=== PATIENT | male | born 1960 | race Caucasian/White ===

== ENCOUNTER 2018-03-09 17:28 | Inpatient (IN) | payer MEDICARE, OTHER ==
[2018-03-09] MEDS ORDERED: Albuterol 0.083% 2.5 MG/3 ML Neb Soln NEB ONE (18:13)
[2018-03-09] MEDS ORDERED: Sodium Chloride 0.9% 10 ML Syringe FLUSH PRN (18:13)
[2018-03-09] MEDS ORDERED: Sodium Chloride 0.9% 1,000 ML IV ONE ×2 (18:13→18:16)
[2018-03-09] MEDS ORDERED: Ketorolac 30 MG/ML SDV IVPUSH ONE (18:13)
[2018-03-09] MEDS ORDERED: HYDROmorphone 0.5 MG/0.5 ML SYRINGE IVPUSH ONE ×2 (18:14→21:38)
--- NOTE | 2018-03-09 18:41 | EDM.PDOC ---
ED HPI GENERAL MEDICAL PROBLEM - General Chief Complaint: Respiratory Problem Stated Complaint: FEVER Time Seen by Provider: 03/09/18 17:55 Source of Information: Reports: Patient History Limitations: Reports: No Limitations - History of Present Illness INITIAL COMMENTS - FREE TEXT/NARRATIVE: Patient is a 57-year-old male with a history of epilepsy, coronary disease with stent placement, GERD, hypercholesteremia, chronic pain syndrome, diabetes, and chest pain presents ED complaining of fever and back pain. States he's had a productive cough for the past month. Cough has progressively gotten worse. There is no shortness of breath. He's had sinus congestion, sore throat, dysuria , with generalized body aches. Patient recently just traveled to [place] for a when fever came about. He has taken tylenol at 1600hr with no significant improvements. States the past 10 years after returning from [place] he has intermittent episodes of fevers with no clear etiology. He's been evaluated by multiple infections disease provider's during this time.He was evaluated by his PCP 1 wks ago and placed on azithromycin. This was completed Tuesday. Treatments [employer]: Reports: Acetaminophen, NSAIDS Back Pain Score (Numeric/FACES): 8 - Related Data Allergies Allergy/AdvReac Type Severity Reaction Status Date / Time No Known Allergies Allergy Verified 03/09/18 23:54 Home Meds: Home Meds Aspirin [Halfprin] 81 mg PO DAILY 03/09/18 [History] ClonazePAM [KlonoPIN] 1 mg PO DAILY 03/09/18 [History] Fenofibrate,Micronized [Fenofibrate] 134 mg PO DAILY 03/09/18 [History] Insuln Asp Prot/Insulin Aspart [NovoLOG Mix 70-30] 1 - 20 units SUBCUT TID 03/09 [History] Krill/Om-3/DHA/EPA/Phospho/Ast [[place]-3 Krill Oil 1,000 mg] 1 tab PO DAILY 03/09 [History] Lisinopril [Prinivil] 10 mg PO DAILY 03/09/18 [History] Pantoprazole [ProTONIX] 40 mg PO DAILY 03/09/18 [History] Phenytoin Sodium Extended [Dilantin] 100 mg PO DAILY 03/09/18 [History] atorvaSTATin [Lipitor] 40 mg PO DAILY 08/30/18 [History] Past Medical History Cardiovascular History: Reports: CAD, High Cholesterol, Hypertension Gastrointestinal History: Reports: GERD Neurological History: Reports: Seizure Endocrine/Metabolic History: Reports: Diabetes, Type I Social & Family History - Tobacco Use Smoking Status *Q: Current Every Day Smoker Years of Tobacco use: 40 Packs/Tins Daily: 0.4 - Recreational Drug Use Recreational Drug Use: No ED ROS GENERAL - Review of Systems Review Of Systems: See Below ED EXAM, GENERAL - Physical Exam Exam: See Below Exam Limited By: No Limitations General Appearance: Alert, WD/WN, Moderate Distress Ears: Hearing Grossly Normal Nose: Normal Inspection Throat/Mouth: Normal Voice, No Airway Compromise, Other (dry oral mucosa) Head: Atraumatic, Normocephalic Neck: Normal Inspection, Supple, Non-Tender, Full Range of Motion Respiratory/Chest: No Respiratory Distress, Lungs Clear, Normal Breath Sounds, No Accessory Muscle Use, Chest Non-Tender Cardiovascular: Normal Peripheral Pulses, No Murmur, Tachycardia Peripheral Pulses: 2+: Radial (L) GI/Abdominal: Normal Bowel Sounds, Soft, No Organomegaly, No Distention, Tender (chronic tenderness noted the umbilicus following hernia repair. No Britton sign , no tenderness along the McBurney's point, no suprapubic tenderness. ) (Male) Exam: Deferred (No complaints per patient.) Back Exam: Normal Inspection, Full Range of Motion, CVA Tenderness (L). No: CVA Tenderness (R), Decreased Range of Motion, Paraspinal Tenderness, Vertebral Tenderness Extremities: Normal Inspection Neurological: Alert, Oriented, CN II-XII Intact, Normal Cognition, No Motor/ Sensory Deficits Psychiatric: Normal Affect, Normal Mood Skin Exam: Warm, Dry, Intact, Normal Color, No Rash Course - Vital Signs Last Recorded V/S: Last Vital Signs Temp 99.3 F 03/10/18 15:32 Pulse 78 03/10/18 15:32 Resp 14 03/10/18 15:32 BP 109/54 L 03/10/18 15:32 Pulse Ox 95 03/10/18 15:32 - Orders/Labs/Meds Orders: Medication Orders Acetaminophen (Tylenol) 650 mg PO Q4H PRN PRN Reason: Pain (Mild 1-3)/fever Acetaminophen/Butalbital/Caffeine (Fioricet 325-50-40 Mg) 2 tab PO Q6H PRN PRN Reason: Headache Last Admin: 03/10/18 00:11 Dose: 2 tab Hydrocodone Bitart/Acetaminophen ([place] 325-5 Mg) 1 tab PO Q4H PRN PRN Reason: Pain (moderate 4-6) Last Admin: 03/10/18 17:32 Dose: 1 tab Admin: 03/10/18 11:15 Dose: 1 tab Admin: 03/10/18 04:36 Dose: 1 tab Albuterol/Ipratropium (Duoneb 3.0-0.5 Mg/3 Ml) 3 ml NEB Q4H PRN PRN Reason: Shortness Of Breath/wheezing Aspirin (Halfprin) 81 mg PO DAILY [facility] Last Admin: 03/10/18 08:23 Dose: 81 mg Bisacodyl (Dulcolax) 5 mg PO DAILY PRN PRN Reason: Constipation Clonazepam (Klonopin) 1 mg PO DAILY [facility] Last Admin: 03/10/18 08:23 Dose: 1 mg Admin: 03/10/18 00:23 Dose: Not Given Docusate Sodium (Colace) 100 mg PO BID PRN PRN Reason: Constipation Fenofibrate (Tricor) 145 mg PO DAILY [facility] Last Admin: 03/10/18 08:23 Dose: 145 mg Fish Oil (Fish Oil) 1 gm PO DAILY [facility] Last Admin: 03/10/18 08:23 Dose: 1 gm Flunisolide (Nasalide Nasal [place]) 15 ml NASBOTH BID [facility] Last Admin: 03/10/18 21:49 Dose: 2 spray Guaifenesin/Phenylephrine HCl (Robitussin Dm) 10 ml PO TID@0700,1400,2100 PRN PRN Reason: Cough Hydralazine HCl (Apresoline) 20 mg IVPUSH Q4H PRN PRN Reason: Hypertension Hydromorphone HCl (Dilaudid) 0.5 mg IVPUSH Q2H PRN PRN Reason: Pain (severe 7-10) Last Admin: 03/10/18 18:23 Dose: 0.5 mg Admin: 03/10/18 11:50 Dose: 0.5 mg Admin: 03/10/18 08:19 Dose: 0.5 mg Admin: 03/10/18 04:37 Dose: 0.5 mg Admin: 03/10/18 00:20 Dose: 0.5 mg Promethazine HCl 12.5 mg/ (Sodium Chloride) 50.5 mls @ 100 mls/hr IV Q6H PRN PRN Reason: Nausea/Vomiting Sodium Chloride (Normal Saline) 1,000 mls @ 125 mls/hr IV ASDIRECTED [facility] Last Admin: 03/10/18 21:46 Dose: 125 mls/hr Infusion: 03/10/18 21:46 Dose: 125 mls/hr Admin: 03/10/18 15:07 Dose: 125 mls/hr Infusion: 03/10/18 14:50 Dose: 125 mls/hr Admin: 03/10/18 06:50 Dose: 125 mls/hr Infusion: 03/10/18 06:48 Dose: 125 mls/hr Admin: 03/09/18 22:48 Dose: 125 mls/hr Piperacillin Sod/Tazobactam (Sod 4.5 gm/ Sodium Chloride) 100 mls @ 25 mls/hr IV Q8H [facility] Last Admin: 03/10/18 21:55 Dose: 25 mls/hr Infusion: 03/10/18 19:09 Dose: 25 mls/hr Admin: 03/10/18 15:09 Dose: 25 mls/hr Infusion: 03/10/18 10:50 Dose: 25 mls/hr Admin: 03/10/18 06:50 Dose: 25 mls/hr Levofloxacin/Dextrose 500 mg/ (Premix) 100 mls @ 100 mls/hr IV Q24H [facility] Last Admin: 03/10/18 21:42 Dose: 100 mls/hr Insulin Human Lispro (Humalog) 0 unit SUBCUT QIDACANDBED [facility]; Protocol Last Admin: 03/10/18 21:51 Dose: 8 units Admin: 03/10/18 17:21 Dose: 4 units Admin: 03/10/18 12:15 Dose: 12 units Lisinopril (Prinivil) 10 mg PO DAILY [facility] Last Admin: 03/10/18 08:26 Dose: 10 mg Loratadine (Claritin) 10 mg PO BEDTIME [facility] Last Admin: 03/10/18 21:48 Dose: 10 mg Lorazepam (Ativan) 2 mg IVPUSH Q4H PRN PRN Reason: Seizures Lorazepam (Ativan) 1 mg IV Q6H PRN PRN Reason: Anxiety Magnesium Sulfate (Pharmacy To Dose - Magnesium Replacement) 0 dose .XX ASDIRECTED PRN PRN Reason: RX TO WATCH MAG LEVEL Metoprolol Tartrate (Lopressor) 5 mg IVPUSH Q4H PRN PRN Reason: Tachycardia Nicotine (Habitrol) 21 mg TRDERM DAILY [facility] Last Admin: 03/10/18 18:24 Dose: Not Given Ondansetron HCl (Zofran) 4 mg IV Q6H PRN PRN Reason: Nausea/Vomiting Last Admin: 03/10/18 06:48 Dose: 4 mg Oxymetazoline HCl (Afrin Original 0.05% Nasal [place]) 1 - 2 ml BIGG Q12HR PRN PRN Reason: Congestion Last Admin: 03/10/18 15:40 Dose: 1 spray Admin: 03/09/18 22:57 Dose: 1 spray Pantoprazole Sodium (Protonix) 40 mg PO ACBREAKFAST [facility] Last Admin: 03/10/18 08:26 Dose: 40 mg Phenytoin Sodium (Phenytoin) 100 mg PO DAILY [facility] Last Admin: 03/10/18 08:23 Dose: 100 mg Polyethylene Glycol (Miralax) 17 gm PO DAILY PRN PRN Reason: Constipation Potassium Chloride (Pharmacy To Dose - Potassium Replacement) 0 dose .XX ASDIRECTED PRN PRN Reason: RX TO WATCH K LEVELS Rosuvastatin Calcium (Crestor) 10 mg PO DAILY [facility] Last Admin: 03/10/18 08:23 Dose: 10 mg Saccharomyces Boulardii (Florastor) 250 mg PO DAILY [facility] Last Admin: 03/10/18 08:26 Dose: 250 mg Senna/Docusate Sodium (Senna Plus) 1 tab PO BID PRN PRN Reason: Constipation Sodium Chloride (Saline Flush) 10 ml FLUSH ASDIRECTED PRN PRN Reason: Keep Vein Open Last Admin: 03/09/18 18:55 Dose: 10 ml Temazepam (Restoril) 15 mg PO BEDTIME PRN PRN Reason: Sleep Last Admin: 03/10/18 00:12 Dose: 15 mg Labs: Laboratory Tests 03/09/18 03/09/18 03/09/18 Range/Units 18:30 18:30 18:30 WBC 13.93 H (4.23-9.07) K/mm3 RBC 4.33 L (4.63-6.08) M/mm3 Hgb 13.8 (13.7-17.5) gm/L Hct 39.4 L (40.1-51.0) % MCV 91.0 (79.0-92.2) fl MCH 31.9 (25.7-32.2) pg MCHC 35.0 (32.2-35.5) g/dl RDW Std Deviation 45.1 H (35.1-43.9) fL Plt Count 288 (163-337) K/mm3 MPV 8.8 L (9.4-12.3) fl Neutrophils % (Manual) 84 H (40-60) % Band Neutrophils % 0 (0-10) % Lymphocytes % (Manual) 12 L (20-40) % Atypical Lymphs % 0 % Monocytes % (Manual) 1 L (2-10) % Eosinophils % (Manual) 2 (0.8-7.0) % Basophils % (Manual) 1 (0.2-1.2) Platelet Estimate Adequate Plt Morphology Comment Normal RBC Morph Comment Normal ESR (0-15) mm/hr D-Dimer, Quantitative (0.19-0.50) mg/L Sodium 141 (136-145) mEq/L Potassium 3.6 (3.5-5.1) mEq/L Chloride 106 (98-107) mEq/L Carbon Dioxide 23 (21-32) mEq/L Anion Gap 15.6 H (5-15) BUN 24 H (7-18) mg/dL Creatinine 1.4 H (0.7-1.3) mg/dL Est Cr Clr Drug Dosing 55.64 mL/min Estimated GFR (MDRD) 52 (>60) mL/min BUN/Creatinine Ratio 17.1 (14-18) Glucose 121 H (74-106) mg/dL Hemoglobin A1c (4.50-6.20) % Lactic Acid (0.4-2.0) mmol/L Calcium 9.0 (8.5-10.1) mg/dL Total Bilirubin 0.4 (0.2-1.0) mg/dL AST 19 (15-37) U/L ALT 23 (16-63) U/L Alkaline Phosphatase 97 (46-116) U/L C-Reactive Protein 6.4 H* (<1.0) mg/dL Total Protein 7.3 (6.4-8.2) g/dl Albumin 3.9 (3.4-5.0) g/dl Globulin 3.4 gm/dL Albumin/Globulin Ratio 1.2 (1-2) Lipase (73-393) U/L Urine Color (Yellow) Urine Appearance (Clear) Urine pH (5.0-8.0) Ur Specific [place] (1.005-1.030) Urine Protein (Negative) Urine Glucose (UA) (Negative) Urine Ketones (Negative) Urine Occult Blood (Negative) Urine Nitrite (Negative) Urine Bilirubin (Negative) Urine Urobilinogen (0.2-1.0) Ur Leukocyte Esterase (Negative) Urine RBC (0-5) /hpf Urine WBC (0-5) /hpf Ur Epithelial Cells (0-5) /hpf Urine Bacteria (FEW) /hpf Urine Mucus (FEW) /hpf Mycoplasma pneumon IgM Negative (NEGATIVE) 03/09/18 03/09/18 03/09/18 Range/Units 18:30 18:30 18:30 WBC (4.23-9.07) K/mm3 RBC (4.63-6.08) M/mm3 Hgb (13.7-17.5) gm/L Hct (40.1-51.0) % MCV (79.0-92.2) fl MCH (25.7-32.2) pg MCHC (32.2-35.5) g/dl RDW Std Deviation (35.1-43.9) fL Plt Count (163-337) K/mm3 MPV (9.4-12.3) fl Neutrophils % (Manual) (40-60) % Band Neutrophils % (0-10) % Lymphocytes % (Manual) (20-40) % Atypical Lymphs % % Monocytes % (Manual) (2-10) % Eosinophils % (Manual) (0.8-7.0) % Basophils % (Manual) (0.2-1.2) Platelet Estimate Plt Morphology Comment RBC Morph Comment ESR 14 (0-15) mm/hr D-Dimer, Quantitative (0.19-0.50) mg/L Sodium (136-145) mEq/L Potassium (3.5-5.1) mEq/L Chloride (98-107) mEq/L Carbon Dioxide (21-32) mEq/L Anion Gap (5-15) BUN (7-18) mg/dL Creatinine (0.7-1.3) mg/dL Est Cr Clr Drug Dosing mL/min Estimated GFR (MDRD) (>60) mL/min BUN/Creatinine Ratio (14-18) Glucose (74-106) mg/dL Hemoglobin A1c 6.80 H (4.50-6.20) % Lactic Acid (0.4-2.0) mmol/L Calcium (8.5-10.1) mg/dL Total Bilirubin (0.2-1.0) mg/dL AST (15-37) U/L ALT (16-63) U/L Alkaline Phosphatase (46-116) U/L C-Reactive Protein (<1.0) mg/dL Total Protein (6.4-8.2) g/dl Albumin (3.4-5.0) g/dl Globulin gm/dL Albumin/Globulin Ratio (1-2) Lipase 56 L (73-393) U/L Urine Color (Yellow) Urine Appearance (Clear) Urine pH (5.0-8.0) Ur Specific [place] (1.005-1.030) Urine Protein (Negative) Urine Glucose (UA) (Negative) Urine Ketones (Negative) Urine Occult Blood (Negative) Urine Nitrite (Negative) Urine Bilirubin (Negative) Urine Urobilinogen (0.2-1.0) Ur Leukocyte Esterase (Negative) Urine RBC (0-5) /hpf Urine WBC (0-5) /hpf Ur Epithelial Cells (0-5) /hpf Urine Bacteria (FEW) /hpf Urine Mucus (FEW) /hpf Mycoplasma pneumon IgM (NEGATIVE) 03/09/18 03/09/18 03/09/18 Range/Units 18:40 20:02 20:40 WBC (4.23-9.07) K/mm3 RBC (4.63-6.08) M/mm3 Hgb (13.7-17.5) gm/L Hct (40.1-51.0) % MCV (79.0-92.2) fl MCH (25.7-32.2) pg MCHC (32.2-35.5) g/dl RDW Std Deviation (35.1-43.9) fL Plt Count (163-337) K/mm3 MPV (9.4-12.3) fl Neutrophils % (Manual) (40-60) % Band Neutrophils % (0-10) % Lymphocytes % (Manual) (20-40) % Atypical Lymphs % % Monocytes % (Manual) (2-10) % Eosinophils % (Manual) (0.8-7.0) % Basophils % (Manual) (0.2-1.2) Platelet Estimate Plt Morphology Comment RBC Morph Comment ESR (0-15) mm/hr D-Dimer, Quantitative 0.28 (0.19-0.50) mg/L Sodium (136-145) mEq/L Potassium (3.5-5.1) mEq/L Chloride (98-107) mEq/L Carbon Dioxide (21-32) mEq/L Anion Gap (5-15) BUN (7-18) mg/dL Creatinine (0.7-1.3) mg/dL Est Cr Clr Drug Dosing mL/min Estimated GFR (MDRD) (>60) mL/min BUN/Creatinine Ratio (14-18) Glucose (74-106) mg/dL Hemoglobin A1c (4.50-6.20) % Lactic Acid 1.7 (0.4-2.0) mmol/L Calcium (8.5-10.1) mg/dL Total Bilirubin (0.2-1.0) mg/dL AST (15-37) U/L ALT (16-63) U/L Alkaline Phosphatase (46-116) U/L C-Reactive Protein (<1.0) mg/dL Total Protein (6.4-8.2) g/dl Albumin (3.4-5.0) g/dl Globulin gm/dL Albumin/Globulin Ratio (1-2) Lipase (73-393) U/L Urine Color Yellow (Yellow) Urine Appearance Slt cloudy H (Clear) Urine pH 6.0 (5.0-8.0) Ur Specific [place] 1.025 (1.005-1.030) Urine Protein 1+ H (Negative) Urine Glucose (UA) Negative (Negative) Urine Ketones Negative (Negative) Urine Occult Blood Trace-intact H (Negative) Urine Nitrite Negative (Negative) Urine Bilirubin Negative (Negative) Urine Urobilinogen 0.2 (0.2-1.0) Ur Leukocyte Esterase 2+ H (Negative) Urine RBC 5-10 H (0-5) /hpf Urine WBC 50-75 H (0-5) /hpf Ur Epithelial Cells 5-10 H (0-5) /hpf Urine Bacteria Moderate H (FEW) /hpf Urine Mucus Not seen (FEW) /hpf Mycoplasma pneumon IgM (NEGATIVE) Meds: Medications Generic Name Dose Route Start Last Admin Trade Name Freq PRN Reason Stop Dose Admin Acetaminophen 650 mg 03/09/18 21:40 Tylenol PO Q4H PRN Pain (Mild 1-3)/fever Acetaminophen/Butalbital/Caffeine 2 tab 03/09/18 22:20 03/10/18 00:11 Fioricet 325-50-40 Mg PO 2 tab Q6H PRN Administration Headache Hydrocodone Bitart/Acetaminophen 1 tab 03/09/18 21:40 03/10/18 17:32 [place] 325-5 Mg PO 1 tab Q4H PRN Administration Pain (moderate 4-6) Albuterol/Ipratropium 3 ml 03/09/18 21:40 Duoneb 3.0-0.5 Mg/3 Ml NEB Q4H PRN Shortness Of Breath/wheezing Aspirin 81 mg 03/10/18 09:00 03/10/18 08:23 Halfprin PO 81 mg DAILY [facility] Administration Bisacodyl 5 mg 03/09/18 21:40 Dulcolax PO DAILY PRN Constipation Clonazepam 1 mg 03/09/18 22:00 03/10/18 08:23 Klonopin PO 1 mg DAILY [facility] Administration Docusate Sodium 100 mg 03/09/18 21:40 Colace PO BID PRN Constipation Fenofibrate 145 mg 03/10/18 09:00 03/10/18 08:23 Tricor PO 145 mg DAILY [facility] Administration Fish Oil 1 gm 03/10/18 09:00 03/10/18 08:23 Fish Oil PO 1 gm DAILY [facility] Administration Flunisolide 15 ml 03/10/18 21:00 03/10/18 21:49 Nasalide Nasal [place] NASBOTH 2 spray BID [facility] Administration Guaifenesin/Phenylephrine HCl 10 ml 03/10/18 07:00 Robitussin Dm PO TID@0700,1400,2100 PRN Cough Hydralazine HCl 20 mg 03/09/18 21:39 Apresoline IVPUSH Q4H PRN Hypertension Hydromorphone HCl 0.5 mg 03/10/18 00:15 03/10/18 18:23 Dilaudid IVPUSH 0.5 mg Q2H PRN Administration Pain (severe 7-10) Promethazine HCl 12.5 mg/ 50.5 mls @ 100 mls/hr 03/09/18 21:40 Sodium Chloride IV Q6H PRN Nausea/Vomiting Sodium Chloride 1,000 mls @ 125 mls/hr 03/09/18 21:45 03/10/18 21:46 Normal Saline IV 125 mls/hr ASDIRECTED [facility] Administration Piperacillin Sod/Tazobactam 100 mls @ 25 mls/hr 03/10/18 06:00 03/10/18 21:55 Sod 4.5 gm/ Sodium Chloride IV 25 mls/hr Q8H [facility] Administration Levofloxacin/Dextrose 500 mg/ 100 mls @ 100 mls/hr 03/10/18 21:00 03/10/18 21 :42 Premix IV 100 mls/hr Q24H [facility] Administration Insulin Human Lispro 0 unit 03/10/18 12:24 03/10/18 21:51 Humalog SUBCUT 8 units QIDACANDBED [facility] Administration Protocol Lisinopril 10 mg 03/10/18 09:00 03/10/18 08:26 Prinivil PO 10 mg DAILY [facility] Administration Loratadine 10 mg 03/10/18 21:00 03/10/18 21:48 Claritin PO 10 mg BEDTIME [facility] Administration Lorazepam 2 mg 03/09/18 21:39 Ativan IVPUSH Q4H PRN Seizures Lorazepam 1 mg 03/09/18 21:40 Ativan IV Q6H PRN Anxiety Magnesium Sulfate 0 dose 03/09/18 21:45 Pharmacy To Dose - Magnesium Replacement .XX ASDIRECTED PRN RX TO WATCH MAG LEVEL Metoprolol Tartrate 5 mg 03/09/18 21:39 Lopressor IVPUSH Q4H PRN Tachycardia Nicotine 21 mg 03/10/18 18:00 03/10/18 18:24 Habitrol TRDERM Not Given DAILY [facility] Ondansetron HCl 4 mg 03/09/18 21:40 03/10/18 06:48 Zofran IV 4 mg Q6H PRN Administration Nausea/Vomiting Oxymetazoline HCl 1 - 2 ml 03/09/18 22:24 03/10/18 15:40 Afrin Original 0.05% Nasal [place] BIGG 1 spray Q12HR PRN Administration Congestion Pantoprazole Sodium 40 mg 03/10/18 06:00 03/10/18 08:26 Protonix PO 40 mg ACBREAKFAST [facility] Administration Phenytoin Sodium 100 mg 03/10/18 09:00 03/10/18 08:23 Phenytoin PO 100 mg DAILY [facility] Administration Polyethylene Glycol 17 gm 03/09/18 21:40 Miralax PO DAILY PRN Constipation Potassium Chloride 0 dose 03/09/18 21:45 Pharmacy To Dose - Potassium Replacement .XX ASDIRECTED PRN RX TO WATCH K LEVELS Rosuvastatin Calcium 10 mg 03/10/18 09:00 03/10/18 08:23 Crestor PO 10 mg DAILY [facility] Administration Saccharomyces Boulardii 250 mg 03/10/18 09:00 03/10/18 08:26 Florastor PO 250 mg DAILY [facility] Administration Senna/Docusate Sodium 1 tab 03/09/18 21:40 Senna Plus PO BID PRN Constipation Sodium Chloride 10 ml 03/09/18 18:13 03/09/18 18:55 Saline Flush FLUSH 10 ml ASDIRECTED PRN Administration Keep Vein Open Temazepam 15 mg 03/09/18 21:40 03/10/18 00:12 Restoril PO 15 mg BEDTIME PRN Administration Sleep Discontinued Medications Generic Name Dose Route Start Last Admin Trade Name Freq PRN Reason Stop Dose Admin Acetaminophen Confirm 03/09/18 20:58 03/09/18 22:59 Tylenol Administered 03/09/18 20:59 Not Given Dose 975 mg .ROUTE .STK-MED ONE Acetaminophen 975 mg 03/09/18 21:01 03/09/18 21:02 Tylenol PO 03/09/18 21:02 975 mg NOW ONE Administration Albuterol 2.5 mg 03/09/18 18:13 03/09/18 18:29 Proventil Neb Soln NEB 03/09/18 18:14 2.5 mg ONETIME ONE Administration Diatrizoate Meglum/Diatrizoate Sod 120 ml 03/10/18 08:14 03/10/18 08:47 Gastrografin 37% PO 03/10/18 08:15 90 ml ONETIME ONE Administration Hydromorphone HCl 0.5 mg 03/09/18 18:14 03/09/18 19:23 Dilaudid IVPUSH 03/09/18 18:15 0.5 mg ONETIME ONE Administration Hydromorphone HCl 0.5 mg 03/09/18 21:38 03/09/18 21:46 Dilaudid IVPUSH 03/09/18 21:39 0.5 mg ONETIME ONE Administration Hydromorphone HCl 0.5 mg 03/09/18 21:40 Dilaudid IVPUSH Q2H PRN Pain (severe 7-10) Sodium Chloride 1,000 mls @ 999 mls/hr 03/09/18 18:13 03/09/18 18:50 Normal Saline IV 03/09/18 19:13 999 mls/hr ONETIME ONE Administration Sodium Chloride 1,000 mls @ 999 mls/hr 03/09/18 18:16 03/09/18 19:56 Normal Saline IV 03/09/18 19:16 999 mls/hr ONETIME ONE Administration Levofloxacin/Dextrose 750 mg/ 150 mls @ 100 mls/hr 03/09/18 20:45 03/09/18 21 :02 Premix IV 03/09/18 22:14 100 mls/hr ONETIME ONE Administration Levofloxacin/Dextrose 500 mg/ 100 mls @ 100 mls/hr 03/10/18 09:00 03/10/18 09 :44 Premix IV Not Given Q24H [facility] Piperacillin Sod/Tazobactam 100 mls @ 200 mls/hr 03/09/18 22:15 03/09/18 22: 50 Sod 4.5 gm/ Sodium Chloride IV 03/09/18 22:44 200 mls/hr ONETIME ONE Administration Magnesium Sulfate 4 gm/ Premix 100 mls @ 25 mls/hr 03/10/18 10:30 03/10/18 11 :14 IV 03/10/18 14:29 25 mls/hr ONETIME ONE Administration Insulin Human Lispro 0 unit 03/09/18 22:00 03/10/18 12:24 Humalog SUBCUT Not Given QIDACANDBED [facility] Protocol Iopamidol 150 ml 03/10/18 08:14 03/10/18 08:48 Isovue-300 (61%) IVPUSH 03/10/18 08:15 150 ml ONETIME ONE Administration Ketorolac Tromethamine 30 mg 03/09/18 18:13 03/09/18 18:53 Toradol IVPUSH 03/09/18 18:14 30 mg ONETIME ONE Administration Miscellaneous Information 0 ea 03/10/18 09:00 03/10/18 08:26 Remove Patch TRDERM Not Given DAILY [facility] Non-Formulary Medication 1 tab 03/10/18 09:00 Krill Oil [Krill Oil] PO DAILY K[facility] Phenytoin Sodium 300 mg 03/10/18 09:00 Phenytoin PO DAILY [facility] Potassium Chloride 40 meq 03/09/18 22:00 03/10/18 02:00 Klor-Con M20 PO 03/10/18 02:01 Not Given Q4H [facility] Sodium Chloride 10 ml 03/10/18 08:14 03/10/18 08:48 Saline Flush FLUSH 03/10/18 18:00 10 ml ONETIME PRN Administration IV FLUSH - Re-Assessments/Exams Free Text/Narrative Re-Assessment/Exam: IV established with normal saline 2 L IV. Toradol 30 mg IVP, Dilaudid 0.5 mg IVP , and albuterol neb tx 2.5 mg. Initial labs and studies will include: CBC, chem 14, CRP, blood cultures 2, ESR , influenza screen, blood gas, mycoplasma pneumonia, and ua. Abdomen with chest x-ray series ordered. Chest x-ray reveals no acute findings. Reviewed with Dr. Welch. X-ray of the abdomen: Nonspecific air in stool pattern, no free air, no obstructive pattern noted, or any additional acute findings. Reviewed with Dr. Welch. White blood cell count 13.93, hemoglobin 13.8, platelet count 288, neutrophil percentage 84 no left shift. Sodium is 141, potassium 3.6, AG of 15.6, creatinine 1.4, glucose 121, CRP elevated at 6.4. Mycoplasma was negative. UA has not been obtained yet. Strep and influenza screen are pending. Strep and influenza screen was negative. 2001 UA came back slightly cloudy, 1+ protein, trace occult blood, 2+ leukocyte Estrace, urine rbc's 5-10, urine wbc's 50-75, urine epithelial cells 5-10, urine bacteria moderate. Patient does have left-sided CVA tenderness. He has no history kidney stones. Clinically patient has pyelonephritis. Levaquin 750 mg IV ordered. Reassessment, patient's vital signs heart rate 93, SPO2 95%, temperature 101.5 Fahrenheit, BP 133/71. Pain is moderate intensity. Ordered dilaudid 0.5mg IVP. I have attempted to call Dr. Aj investigations chief Hospitalists. I left a message for him to call the E.D for admission. Tylenol 975mg PO ordered. 03/09/18 21:[address] Aj. He has accepted the patient. MCG will be completed by nursing staff. Departure - Departure Time of Disposition: 20:02 Disposition: Admitted As Inpatient 65 Condition: Fair Clinical Impression: Pyelonephritis, acute - Discharge Information
[2018-03-09] MEDS ORDERED: Levofloxacin/Dextrose 5%-Water 750 MG in Premix Bag 1 BAG IV ONE (20:45)
[2018-03-09] MEDS ORDERED: Acetaminophen 325 MG Tab ONE (20:58)
[2018-03-09] MEDS ORDERED: Acetaminophen 325 MG Tab PO ONE (21:01)
[2018-03-09] MEDS ORDERED: hydrALAZINE 20 MG/ML SDV IVPUSH PRN (21:39)
[2018-03-09] MEDS ORDERED: LORazepam 2 MG/ML SDV IVPUSH PRN (21:39)
[2018-03-09] MEDS ORDERED: Metoprolol Tartrate 5 MG/5 ML SDV IVPUSH PRN (21:39)
[2018-03-09] MEDS ORDERED: Albuterol/Ipratropium 3.0-0.5 MG/3 ML Neb Soln NEB PRN (21:40)
[2018-03-09] MEDS ORDERED: Bisacodyl 5 MG Tab PO PRN (21:40)
[2018-03-09] MEDS ORDERED: Docusate Sodium 100 MG Cap PO PRN (21:40)
[2018-03-09] MEDS ORDERED: Promethazine 12.5 MG in Sodium Chloride 0.9% 50 ML IV PRN (21:40)
[2018-03-09] MEDS ORDERED: LORazepam 2 MG/ML SDV IV PRN (21:40)
[2018-03-09] MEDS ORDERED: Ondansetron 4 MG/2 ML SDV IV PRN (21:40)
[2018-03-09] MEDS ORDERED: Temazepam 15 MG Cap PO PRN (21:40)
[2018-03-09] MEDS ORDERED: HYDROmorphone 0.5 MG/0.5 ML SYRINGE IVPUSH PRN (21:40)
[2018-03-09] MEDS ORDERED: Polyethylene Glycol 3350 Powder 17 GM Packet PO PRN (21:40)
[2018-03-09] MEDS ORDERED: Acetaminophen 325 MG Tab PO PRN (21:40)
--- NOTE | 2018-03-09 22:07 | PCM.HP ---
H&P History of Present Illness - General Date of Service: 03/09/18 Admit Problem/Dx: Admission Diagnosis/Problem Admission Diagnosis/Problem Pyelonephritis Source of Information: Patient, Provider, RN Notes Reviewed History Limitations: Reports: No Limitations - History of Present Illness Initial Comments - Free Text/Narative: This is s a 57 yo white male with past medical hx/o HTN, HLD, CAD S/p Stent Placement, DM2, GERD, Seizure Disorder, Chronic Pain Syndrome, and Nicotine Use Disorder who comes in for evaluation of febrile illness associated with productive cough, shortness of breath sand headache. He reports previous hx/o it in the past since he travelled to [place] 10 years ago. He denies recent traveled outside the country and no sick contract. His initial work up in the emergency department shows a CBC remarkable for WBC of 13.93, IBC of 4.33, hematocrit of 39.4, RDW 45.1, MPV of 8.8, neutrophils of 84%, lymphocytes of 12%, and monocytes of 1%. His ESR and d-dimer are both within normal limits. His chemistry is remarkable for anion gap of 15.6, BUN of 24, creatinine 1.4, glucose of 121, hemoglobin A1c of 6.8, CRP of 6.4, and lipase of 56. His UA is highly suggestive of UTI. His chest and abdominal x-ray revealed no acute abnormal findings. Patient is being admitted for acute pyelonephritis. He is full code. Back Pain Score (Numeric/FACES): 8 - Related Data Allergies/Adverse Reactions: Allergies Allergy/AdvReac Type Severity Reaction Status Date / Time No Known Allergies Allergy Verified 03/09/18 23:54 Home Medications: Home Meds Aspirin [Halfprin] 81 mg PO DAILY 03/09/18 [History] ClonazePAM [KlonoPIN] 1 mg PO DAILY 03/09/18 [History] Fenofibrate,Micronized [Fenofibrate] 134 mg PO DAILY 03/09/18 [History] Insuln Asp Prot/Insulin Aspart [NovoLOG Mix 70-30] 1 - 20 units SUBCUT TID 03/09 [History] Krill/Om-3/DHA/EPA/Phospho/Ast [Vanzant-3 Krill Oil 1,000 mg] 1 tab PO DAILY 03/09 [History] Lisinopril [Prinivil] 10 mg PO DAILY 03/09/18 [History] Pantoprazole [ProTONIX] 40 mg PO DAILY 03/09/18 [History] Phenytoin Sodium Extended [Dilantin] 100 mg PO DAILY 03/09/18 [History] atorvaSTATin [Lipitor] 40 mg PO DAILY 03/09/18 [History] Past Medical History Cardiovascular History: Reports: CAD, High Cholesterol, Hypertension Gastrointestinal History: Reports: GERD Neurological History: Reports: Seizure Endocrine/Metabolic History: Reports: Diabetes, Type I Social & Family History - Tobacco Use Smoking Status *Q: Current Every Day Smoker Years of Tobacco use: 40 Packs/Tins Daily: 0.4 - Recreational Drug Use Recreational Drug Use: No H&P Review of Systems - Review of Systems: Review Of Systems: See Below General: Reports: Fever, Chills, Malaise, Weakness, Fatigue, Decreased Appetite HEENT: Reports: No Symptoms, Sinus Congestion, Sore Throat Pulmonary: Reports: Cough, Sputum. Denies: Shortness of Breath Cardiovascular: Denies: Chest Pain, Palpitations, Other Gastrointestinal: Reports: Decreased Appetite. Denies: Abdominal Pain, Nausea, Vomiting Genitourinary: Reports: No Symptoms Musculoskeletal: Reports: Back Pain Skin: Denies: Cyanosis, Mottled, Diaphoresis, Pruritis, Erythema, Wound Psychiatric: Denies: Confusion, Mood Lability, Anxiety, Agitation, Hallucinations (Auditory) Neurological: Reports: Headache, Weakness. Denies: Confusion, Difficulty Walking, Gait Disturbance Hematologic/Lymphatic: Reports: No Symptoms Immunologic: Reports: No Symptoms Exam - Exam Exam: See Below - Vital Signs Vital Signs: Last Vital Signs Temp 38.6 C H 03/09/18 21:02 Pulse 101 H 03/09/18 17:35 Resp 14 03/09/18 17:35 BP 160/76 H 03/09/18 17:35 Pulse Ox 98 03/09/18 18:14 Weight: 91.626 kg - Exam General: Alert, Oriented, Cooperative, Mild Distress, Sedated HEENT: Conjunctiva Clear, EACs Clear, EOMI, Hearing Intact, Mucosa Moist & [place] , Posterior Pharynx Clear, Pupils Equal, Other (facial tenderness; nares have no lesions, eschar or signs of infection). No: Nares Patent, Normal Nasal Septum Neck: Supple, Trachea Midline Lungs: Clear to Auscultation, Normal Respiratory Effort Cardiovascular: Regular Rate, Regular Rhythm GI/Abdominal Exam: Normal Bowel Sounds, Soft, Non-Tender, No Organomegaly, No Distention, No Abnormal Bruit, No Mass (Male) Exam: Deferred Rectal (Males) Exam: Deferred Back Exam: Normal Inspection, Full Range of Motion, CVA Tenderness (L), CVA Tenderness (R), Decreased Range of Motion, Vertebral Tenderness Extremities: Normal Inspection, Normal Range of Motion, Non-Tender, No Pedal Edema, Normal Capillary Refill Peripheral Pulses: 3+: Posterior Tibial (L), Posterior Tibial (R), Dorsalis Pedis (L), Dorsalis Pedis (R) Skin: Warm, Dry, Intact Neuro Extensive - Mental Status: Oriented x3, Normal Cognition, Memory Intact Neuro Extensive - Motor, Sensory, Reflexes: CN II-XII Intact, Normal Gait Psychiatric: Alert, Normal Affect, Normal Mood - Patient Data Lab Results Last 24 hrs: Laboratory Results - last 24 hr 03/09/18 03/09/18 03/09/18 Range/Units 18:30 18:30 18:30 WBC 13.93 H (4.23-9.07) K/mm3 RBC 4.33 L (4.63-6.08) M/mm3 Hgb 13.8 (13.7-17.5) gm/L Hct 39.4 L (40.1-51.0) % MCV 91.0 (79.0-92.2) fl MCH 31.9 (25.7-32.2) pg MCHC 35.0 (32.2-35.5) g/dl RDW Std Deviation 45.1 H (35.1-43.9) fL Plt Count 288 (163-337) K/mm3 MPV 8.8 L (9.4-12.3) fl Neutrophils % (Manual) 84 H (40-60) % Band Neutrophils % 0 (0-10) % Lymphocytes % (Manual) 12 L (20-40) % Atypical Lymphs % 0 % Monocytes % (Manual) 1 L (2-10) % Eosinophils % (Manual) 2 (0.8-7.0) % Basophils % (Manual) 1 (0.2-1.2) Platelet Estimate Adequate Plt Morphology Comment Normal RBC Morph Comment Normal ESR (0-15) mm/hr Sodium 141 (136-145) mEq/L Potassium 3.6 (3.5-5.1) mEq/L Chloride 106 (98-107) mEq/L Carbon Dioxide 23 (21-32) mEq/L Anion Gap 15.6 H (5-15) BUN 24 H (7-18) mg/dL Creatinine 1.4 H (0.7-1.3) mg/dL Est Cr Clr Drug Dosing 55.64 mL/min Estimated GFR (MDRD) 52 (>60) mL/min BUN/Creatinine Ratio 17.1 (14-18) Glucose 121 H (74-106) mg/dL Lactic Acid (0.4-2.0) mmol/L Calcium 9.0 (8.5-10.1) mg/dL Total Bilirubin 0.4 (0.2-1.0) mg/dL AST 19 (15-37) U/L ALT 23 (16-63) U/L Alkaline Phosphatase 97 (46-116) U/L C-Reactive Protein 6.4 H* (<1.0) mg/dL Total Protein 7.3 (6.4-8.2) g/dl Albumin 3.9 (3.4-5.0) g/dl Globulin 3.4 gm/dL Albumin/Globulin Ratio 1.2 (1-2) Lipase (73-393) U/L Urine Color (Yellow) Urine Appearance (Clear) Urine pH (5.0-8.0) Ur Specific [place] (1.005-1.030) Urine Protein (Negative) Urine Glucose (UA) (Negative) Urine Ketones (Negative) Urine Occult Blood (Negative) Urine Nitrite (Negative) Urine Bilirubin (Negative) Urine Urobilinogen (0.2-1.0) Ur Leukocyte Esterase (Negative) Urine RBC (0-5) /hpf Urine WBC (0-5) /hpf Ur Epithelial Cells (0-5) /hpf Urine Bacteria (FEW) /hpf Urine Mucus (FEW) /hpf Mycoplasma pneumon IgM Negative (NEGATIVE) 03/09/18 03/09/18 03/09/18 Range/Units 18:30 18:30 18:40 WBC (4.23-9.07) K/mm3 RBC (4.63-6.08) M/mm3 Hgb (13.7-17.5) gm/L Hct (40.1-51.0) % MCV (79.0-92.2) fl MCH (25.7-32.2) pg MCHC (32.2-35.5) g/dl RDW Std Deviation (35.1-43.9) fL Plt Count (163-337) K/mm3 MPV (9.4-12.3) fl Neutrophils % (Manual) (40-60) % Band Neutrophils % (0-10) % Lymphocytes % (Manual) (20-40) % Atypical Lymphs % % Monocytes % (Manual) (2-10) % Eosinophils % (Manual) (0.8-7.0) % Basophils % (Manual) (0.2-1.2) Platelet Estimate Plt Morphology Comment RBC Morph Comment ESR 14 (0-15) mm/hr Sodium (136-145) mEq/L Potassium (3.5-5.1) mEq/L Chloride (98-107) mEq/L Carbon Dioxide (21-32) mEq/L Anion Gap (5-15) BUN (7-18) mg/dL Creatinine (0.7-1.3) mg/dL Est Cr Clr Drug Dosing mL/min Estimated GFR (MDRD) (>60) mL/min BUN/Creatinine Ratio (14-18) Glucose (74-106) mg/dL Lactic Acid 1.7 (0.4-2.0) mmol/L Calcium (8.5-10.1) mg/dL Total Bilirubin (0.2-1.0) mg/dL AST (15-37) U/L ALT (16-63) U/L Alkaline Phosphatase (46-116) U/L C-Reactive Protein (<1.0) mg/dL Total Protein (6.4-8.2) g/dl Albumin (3.4-5.0) g/dl Globulin gm/dL Albumin/Globulin Ratio (1-2) Lipase 56 L (73-393) U/L Urine Color (Yellow) Urine Appearance (Clear) Urine pH (5.0-8.0) Ur Specific [place] (1.005-1.030) Urine Protein (Negative) Urine Glucose (UA) (Negative) Urine Ketones (Negative) Urine Occult Blood (Negative) Urine Nitrite (Negative) Urine Bilirubin (Negative) Urine Urobilinogen (0.2-1.0) Ur Leukocyte Esterase (Negative) Urine RBC (0-5) /hpf Urine WBC (0-5) /hpf Ur Epithelial Cells (0-5) /hpf Urine Bacteria (FEW) /hpf Urine Mucus (FEW) /hpf Mycoplasma pneumon IgM (NEGATIVE) 03/09/18 Range/Units 20:02 WBC (4.23-9.07) K/mm3 RBC (4.63-6.08) M/mm3 Hgb (13.7-17.5) gm/L Hct (40.1-51.0) % MCV (79.0-92.2) fl MCH (25.7-32.2) pg MCHC (32.2-35.5) g/dl RDW Std Deviation (35.1-43.9) fL Plt Count (163-337) K/mm3 MPV (9.4-12.3) fl Neutrophils % (Manual) (40-60) % Band Neutrophils % (0-10) % Lymphocytes % (Manual) (20-40) % Atypical Lymphs % % Monocytes % (Manual) (2-10) % Eosinophils % (Manual) (0.8-7.0) % Basophils % (Manual) (0.2-1.2) Platelet Estimate Plt Morphology Comment RBC Morph Comment ESR (0-15) mm/hr Sodium (136-145) mEq/L Potassium (3.5-5.1) mEq/L Chloride (98-107) mEq/L Carbon Dioxide (21-32) mEq/L Anion Gap (5-15) BUN (7-18) mg/dL Creatinine (0.7-1.3) mg/dL Est Cr Clr Drug Dosing mL/min Estimated GFR (MDRD) (>60) mL/min BUN/Creatinine Ratio (14-18) Glucose (74-106) mg/dL Lactic Acid (0.4-2.0) mmol/L Calcium (8.5-10.1) mg/dL Total Bilirubin (0.2-1.0) mg/dL AST (15-37) U/L ALT (16-63) U/L Alkaline Phosphatase (46-116) U/L C-Reactive Protein (<1.0) mg/dL Total Protein (6.4-8.2) g/dl Albumin (3.4-5.0) g/dl Globulin gm/dL Albumin/Globulin Ratio (1-2) Lipase (73-393) U/L Urine Color Yellow (Yellow) Urine Appearance Slt cloudy H (Clear) Urine pH 6.0 (5.0-8.0) Ur Specific [place] 1.025 (1.005-1.030) Urine Protein 1+ H (Negative) Urine Glucose (UA) Negative (Negative) Urine Ketones Negative (Negative) Urine Occult Blood Trace-intact H (Negative) Urine Nitrite Negative (Negative) Urine Bilirubin Negative (Negative) Urine Urobilinogen 0.2 (0.2-1.0) Ur Leukocyte Esterase 2+ H (Negative) Urine RBC 5-10 H (0-5) /hpf Urine WBC 50-75 H (0-5) /hpf Ur Epithelial Cells 5-10 H (0-5) /hpf Urine Bacteria Moderate H (FEW) /hpf Urine Mucus Not seen (FEW) /hpf Mycoplasma pneumon IgM (NEGATIVE) Result Diagrams: 03/10/18 05:58 03/10/18 05:58 [place] Results Last 24 hrs: Microbiology 03/09/18 19:15 Group A Streptococcus Rapid Screen - Final Throat NEGATIVE STREP A SCREEN 03/09/18 19:20 Influenza Type A Antigen Screen - Final Nasal Aspirate, Unspecified NEGATIVE INFLUENZA A VIRUS AG Influenza Type B Antigen Screen - Final NEGATIVE INFLUENZA B VIRUS AG Problem List Initiated/Reviewed/Updated: Yes Orders Last 24hrs: Active Orders 24 hr Category Date Time Status Admission Status [Patient Status] [ADT] Routine ADT 03/09/18 21:24 Active Accu Check [Blood Glucose Check, Bedside] [RC] Care 03/09/18 21:55 Ordered QIDACANDBED Height and Weight [RC] DAILY Care 03/09/18 21:40 Ordered Intake and Output [RC] QSHIFT Care 03/09/18 21:40 Ordered Oxygen Therapy [RC] PRN Care 03/09/18 21:40 Ordered Peripheral IV Care [RC] . DIRECTED Care 03/09/18 18:14 Active RT Aerosol Therapy [RC] ASDIRECTED Care 03/09/18 18:14 Active RT Aerosol Therapy [RC] ASDIRECTED Care 03/09/18 21:43 Ordered Up ad [place] [RC] ASDIRECTED Care 03/09/18 21:40 Ordered VTE/DVT Education [RC] PER UNIT ROUTINE Care 03/09/18 21:40 Ordered Vital Signs [RC] Q4H Care 03/09/18 21:40 Ordered Consult to Case Management [CONS] Routine Cons 03/09/18 21:40 Ordered Consult to Metallography Teacher [CONS] Routine Cons 03/09/18 21:40 Ordered OT Evaluation and Treatment [CONS] Routine Cons 03/09/18 21:40 Ordered PT Evaluation and Treatment [CONS] Routine Cons 03/09/18 21:40 Ordered Consistent Carbohydrate Diet [DIET] Diet 03/09/18 Dinner Ordered Abdomen Series w Chest 1V [CR] Stat Exams 03/09/18 18:11 Taken A1C [GLYCOSYLATED HEMOGLOBIN,HGBA1C] [CHEM] Stat Lab 03/09/18 21:55 Ordered BASIC METABOLIC PANEL,BMP [CHEM] AM Lab 03/10/18 05:11 Ordered BASIC METABOLIC PANEL,BMP [CHEM] AM Lab 03/11/18 05:11 Ordered BASIC METABOLIC PANEL,BMP [CHEM] AM Lab 03/12/18 05:11 Ordered BASIC METABOLIC PANEL,BMP [CHEM] AM Lab 03/13/18 05:11 Ordered BASIC METABOLIC PANEL,BMP [CHEM] AM Lab 03/14/18 05:11 Ordered C-REACTIVE PROTEIN [CHEM] AM Lab 03/10/18 05:11 Ordered C-REACTIVE PROTEIN [CHEM] AM Lab 03/11/18 05:11 Ordered C-REACTIVE PROTEIN [CHEM] AM Lab 03/12/18 05:11 Ordered C-REACTIVE PROTEIN [CHEM] AM Lab 03/13/18 05:11 Ordered C-REACTIVE PROTEIN [CHEM] AM Lab 03/14/18 05:11 Ordered CBC WITH AUTO DIFF [HEME] AM Lab 03/10/18 05:11 Ordered CBC WITH AUTO DIFF [HEME] AM Lab 03/11/18 05:11 Ordered CBC WITH AUTO DIFF [HEME] AM Lab 03/12/18 05:11 Ordered CBC WITH AUTO DIFF [HEME] AM Lab 03/13/18 05:11 Ordered CBC WITH AUTO DIFF [HEME] AM Lab 03/14/18 05:11 Ordered CULTURE BLOOD [BC] Stat Lab 03/09/18 18:40 Received CULTURE BLOOD [BC] Stat Lab 03/09/18 18:50 Received CULTURE STREP A CONFIRMATION [RM] Stat Lab 03/09/18 19:15 Results CULTURE URINE [RM] Stat Lab 03/09/18 20:02 Received INFLUENZA A+B AG SCREEN [RM] Stat Lab 03/09/18 19:20 Ordered LIPID PANEL [CHEM] AM Lab 03/10/18 05:11 Ordered MAGNESIUM [CHEM] AM Lab 03/10/18 05:11 Ordered MAGNESIUM [CHEM] AM Lab 03/11/18 05:11 Ordered MAGNESIUM [CHEM] AM Lab 03/12/18 05:11 Ordered MAGNESIUM [CHEM] AM Lab 03/13/18 05:11 Ordered MAGNESIUM [CHEM] AM Lab 03/14/18 05:11 Ordered STREP SCRN A RAPID W CULT CONF [RM] Stat Lab 03/09/18 19:15 Ordered Acetaminophen [Tylenol] Med 03/09/18 21:40 Ordered 650 mg PO Q4H PRN Acetaminophen/HYDROcodone [[place] 325-5 MG] Med 03/09/18 21:40 Ordered 1 tab PO Q4H PRN Albuterol/Ipratropium [DuoNeb 3.0-0.5 MG/3 ML] Med 03/09/18 21:40 Ordered 3 ml NEB Q4H PRN Aspirin [Halfprin] Med 03/10/18 09:00 Ordered 81 mg PO DAILY Bisacodyl [Dulcolax] Med 03/09/18 21:40 Ordered 5 mg PO DAILY PRN ClonazePAM Med 03/10/18 09:00 Ordered 1 mg PO DAILY Docusate Sodium [Colace] Med 03/09/18 21:40 Ordered 100 mg PO BID PRN Docusate Sodium/Sennosides [Senna Plus] Med 03/09/18 21:40 Ordered 1 tab PO BID PRN Fenofibrate,Micronized Med 03/10/18 09:00 Ordered 134 mg PO DAILY HYDROmorphone [Dilaudid] Med 03/09/18 21:40 Ordered 0.5 mg IVPUSH Q2H PRN Insulin Lispro [HumaLOG] Med 03/09/18 22:00 Ordered See Protocol SUBCUT QIDACANDBED Krill Oil [Krill Oil] Med 03/10/18 09:00 Ordered 1 tab PO DAILY Krill/Om-3/DHA/EPA/Phospho/Ast [Vanzant-3 Krill Oil 1,000 Med 03/10/18 09:00 Ordered mg] 1 tab PO DAILY LORazepam [Ativan] Med 03/09/18 21:40 Ordered 1 mg IV Q6H PRN LORazepam [Ativan] Med 03/09/18 21:39 Ordered 2 mg IVPUSH Q4H PRN Levofloxacin/Dextrose 5%-Water [Levaquin in D5W 500 MG/ Med 03/10/18 09:00 Ordered 100 ML] 500 mg Premix Bag 1 bag IV Q24H Levofloxacin/Dextrose 5%-Water [Levaquin in D5W 750 MG/ Med 03/09/18 20:45 Active 150 ML] 750 mg Premix Bag 1 bag IV ONETIME Lisinopril [Prinivil] Med 03/10/18 09:00 Ordered 10 mg PO DAILY Magnesium Rep Pharmacy to Dose [Pharmacy to Dose - Med 03/09/18 21:45 Ordered Magnesium Replacement] 1 dose .XX ASDIRECTED Metoprolol Tartrate [Lopressor] Med 03/09/18 21:39 Ordered 5 mg IVPUSH Q4H PRN Ondansetron [Zofran] Med 03/09/18 21:40 Ordered 4 mg IV Q6H PRN Pantoprazole [ProTONIX] Med 03/10/18 09:00 Ordered 1 tab PO DAILY Phenytoin Med 03/10/18 09:00 Ordered 300 mg PO DAILY Piperacillin/Tazobactam [Zosyn] 4.5 gm Med 03/09/18 22:00 Ordered Sodium Chloride 0.9% [Normal Saline] 100 ml IV Q8H Polyethylene Glycol 3350 [MiraLAX] Med 03/09/18 21:40 Ordered 17 gm PO DAILY PRN Potassium Chloride [Klor-Con M20] Med 03/09/18 22:00 Active 40 meq PO Q4H Potassium Rep Pharmacy to Dose [Pharmacy to Dose - Med 03/09/18 21:45 Ordered Potassium Replacement] 1 dose .XX ASDIRECTED Promethazine [Phenergan] 12.5 mg Med 03/09/18 21:40 Ordered Sodium Chloride 0.9% [Normal Saline] 50 ml IV Q6H Saccharomyces Boulardii [Florastor] Med 03/10/18 09:00 Ordered 250 mg PO DAILY Sodium Chloride 0.9% @ 125 MLS/HR (1000ml) Med 03/09/18 21:45 Ordered Sodium Chloride 0.9% [Normal Saline] 1,000 ml IV ASDIRECTED Sodium Chloride 0.9% [Saline Flush] Med 03/09/18 18:13 Active 10 ml FLUSH ASDIRECTED PRN Temazepam [Restoril] Med 03/09/18 21:40 Ordered 15 mg PO BEDTIME PRN atorvaSTATin Med 03/10/18 09:00 Ordered 40 mg PO DAILY hydrALAZINE [Apresoline] Med 03/09/18 21:39 Ordered 20 mg IVPUSH Q4H PRN Blood Culture x2 Reflex Set [OM.PC] Stat Oth 03/09/18 18:11 Ordered Peripheral IV Insertion Adult [OM.PC] Routine Oth 03/09/18 18:13 Ordered Resuscitation Status Routine Resus Stat 03/09/18 21:40 Ordered Medication Orders Acetaminophen (Tylenol) 650 mg PO Q4H PRN PRN Reason: Pain (Mild 1-3)/fever Hydrocodone Bitart/Acetaminophen ([place] 325-5 Mg) 1 tab PO Q4H PRN PRN Reason: Pain (moderate 4-6) Albuterol/Ipratropium (Duoneb 3.0-0.5 Mg/3 Ml) 3 ml NEB Q4H PRN PRN Reason: Shortness Of Breath/wheezing Aspirin (Halfprin) 81 mg PO DAILY KATHY Bisacodyl (Dulcolax) 5 mg PO DAILY PRN PRN Reason: Constipation Docusate Sodium (Colace) 100 mg PO BID PRN PRN Reason: Constipation Hydralazine HCl (Apresoline) 20 mg IVPUSH Q4H PRN PRN Reason: Hypertension Hydromorphone HCl (Dilaudid) 0.5 mg IVPUSH Q2H PRN PRN Reason: Pain (severe 7-10) Levofloxacin/Dextrose 750 mg/ (Premix) 150 mls @ 100 mls/hr IV ONETIME ONE Stop: 03/09/18 22:14 Last Admin: 03/09/18 21:02 Dose: 100 mls/hr Promethazine HCl 12.5 mg/ (Sodium Chloride) 50.5 mls @ 100 mls/hr IV Q6H PRN PRN Reason: Nausea/Vomiting Sodium Chloride (Normal Saline) 1,000 mls @ 125 mls/hr IV ASDIRECTED KATHY Lisinopril (Prinivil) 10 mg PO DAILY KATHY Lorazepam (Ativan) 2 mg IVPUSH Q4H PRN PRN Reason: Seizures Lorazepam (Ativan) 1 mg IV Q6H PRN PRN Reason: Anxiety Magnesium Sulfate (Pharmacy To Dose - Magnesium Replacement) 1 dose .XX ASDIRECTED [facility] Metoprolol Tartrate (Lopressor) 5 mg IVPUSH Q4H PRN PRN Reason: Tachycardia Non-Formulary Medication (Clonazepam) 1 mg PO DAILY KATHY Non-Formulary Medication (Fenofibrate,Micronized) 134 mg PO DAILY KATHY Non-Formulary Medication (Krill Oil [Krill Oil]) 1 tab PO DAILY KATHY Non-Formulary Medication (Krill/Om-3/Dha/Epa/Phospho/Ast [Vanzant-3 Krill Oil 1, 000 Mg]) 1 tab PO DAILY [facility] Ondansetron HCl (Zofran) 4 mg IV Q6H PRN PRN Reason: Nausea/Vomiting Pantoprazole Sodium (Protonix) mg PO DAILY [facility] Phenytoin Sodium (Phenytoin) 300 mg PO DAILY [facility] Polyethylene Glycol (Miralax) 17 gm PO DAILY PRN PRN Reason: Constipation Potassium Chloride (Pharmacy To Dose - Potassium Replacement) 1 dose .XX ASDIRECTED [facility] Potassium Chloride (Klor-Con M20) 40 meq PO Q4H [facility] Stop: 03/10/18 02:01 Rosuvastatin Calcium (Crestor) 10 mg PO DAILY [facility] Senna/Docusate Sodium (Senna Plus) 1 tab PO BID PRN PRN Reason: Constipation Sodium Chloride (Saline Flush) 10 ml FLUSH ASDIRECTED PRN PRN Reason: Keep Vein Open Last Admin: 03/09/18 18:55 Dose: 10 ml Temazepam (Restoril) 15 mg PO BEDTIME PRN PRN Reason: Sleep Assessment/Plan Comment:: Assessment/Plan: Acute: Fever - Documented tem of 38.6 C - 2/2 Above - WBC 13.93 and CRP 6.4 - Treatment as above Pyelonephritis: - Risk Factors: Poorly controlled DM1 - A1C 6.8 and BS 121 - IV Levaquin and Zosyn due to immuno-suppressed state - Blood Cx x2 and UA Cx Bronchitis - Smokes cigarettes for 40 years now - CXR no obvious infiltrates - Productive cough and shortness of breath - Decongestant and Expectorant - Sputum Cx, Mycoplasma, and Strep Pneumonia Ag URI/Sinusitis - Facial Tenderness - Nares are congested and narrowed - Nasal spray and dencongestant Renal Insufficiency - Unknown baseline Chronic: HTN HLD CAD S/p Stent Placement DM2 on Insulin GERD Seizure Disorder Chronic Pain Syndrome Nicotine Use Disorder Plan: Admit to [facility] Resume Home Meds Routine AM Labs PT/OT consult SW/CM brennan d/c planning Code status:1
[2018-03-09] MEDS ORDERED: Piperacillin/Tazobactam 4.5 GM in Sodium Chloride 0.9% 100 ML IV ONE (22:15)
[2018-03-09] MEDS ORDERED: Acetaminophen/Butalbital/Caffeine 325-50-40 MG Tab PO PRN (22:20)
[2018-03-09] MEDS ORDERED: Nicotine 21 MG/24 Hr Patch TRDERM PRN (22:30)
[2018-03-09] MEDS: Sodium Chloride 0.9% 1,000 ML IV SCH (22:48)
[2018-03-09] MEDS: Oxymetazoline 0.05% Nasal Spray 15 ML Bottle NAS PRN (22:57)
[2018-03-09] MEDS: Insulin Lispro 100 Unit/ML 3 ML KwikPen SUBCUT SCH (22:58)
[2018-03-09] MEDS: ClonazePAM 1 MG Tab PO SCH (23:04)
[2018-03-09] MEDS: Potassium Chloride 20 MEQ Tab.ER PO SCH (23:04)
[2018-03-10] MEDS: HYDROmorphone 0.5 MG/0.5 ML Syringe IVPUSH PRN ×5 (00:20→18:23)
[2018-03-10] MEDS: ClonazePAM 1 MG Tab PO SCH ×2 (00:23→08:23)
[2018-03-10] MEDS: Insulin Lispro 100 Unit/ML 3 ML KwikPen SUBCUT SCH ×6 (01:25→21:51)
[2018-03-10] MEDS: Potassium Chloride 20 MEQ Tab.ER PO SCH (02:00)
[2018-03-10] MEDS: Acetaminophen/HYDROcodone 325-5 MG Tab PO PRN ×3 (04:36→17:32)
[2018-03-10] MEDS: Sodium Chloride 0.9% 1,000 ML IV SCH ×3 (06:50→22:45)
[2018-03-10] MEDS: Piperacillin/Tazobactam 4.5 GM in Sodium Chloride 0.9% 100 ML IV SCH ×3 (06:50→21:55)
[2018-03-10] MEDS ORDERED: guaiFENesin/Dextromethorphan 100-10 MG/5 ML Soln 5 ML Cup PO PRN (07:00)
[2018-03-10] MEDS ORDERED: Iopamidol 612 MG/ML 150 ML Bottle IVPUSH ONE (08:14)
[2018-03-10] MEDS ORDERED: Sodium Chloride 0.9% 10 ML Syringe FLUSH PRN (08:14)
[2018-03-10] MEDS ORDERED: Diatrizoate Meglumine/Diatrizoate Sodium 37% 120 ML Bottle PO ONE (08:14)
[2018-03-10] MEDS: Rosuvastatin 10 MG Tab PO SCH (08:23)
[2018-03-10] MEDS: Aspirin 81 MG Tab.EC PO SCH (08:23)
[2018-03-10] MEDS: Fish Oil/Omega-3 Fatty Acids 1 Gm Cap PO SCH (08:23)
[2018-03-10] MEDS: Fenofibrate Nanocrystallized 145 MG Tab PO SCH (08:23)
[2018-03-10] MEDS: Phenytoin 100 MG Cap.ER PO SCH (08:23)
[2018-03-10] MEDS: Saccharomyces Boulardii (Probiotic) 250 MG Cap PO SCH (08:26)
[2018-03-10] MEDS: Lisinopril 10 MG Tab PO SCH (08:26)
[2018-03-10] MEDS: Pantoprazole 40 MG Tab.CR PO SCH (08:26)
[2018-03-10] MEDS ORDERED: Levofloxacin/Dextrose 5%-Water 500 MG in Premix Bag 1 BAG IV SCH (09:00)
[2018-03-10] MEDS ORDERED: Phenytoin 100 MG Cap.ER PO SCH (09:00)
[2018-03-10] MEDS ORDERED: KRILL OIL PO SCH (09:00)
[2018-03-10] MEDS ORDERED: REMOVE NICOTINE TRDERM SCH (09:00)
--- NOTE | 2018-03-10 10:03 | CT ---
CT abdomen and pelvis Technique: Multiple axial sections were obtained from above the dome of the diaphragm inferiorly through the pubic symphysis. Intravenous contrast and oral contrast was utilized. Delayed images were also obtained from above the kidneys inferiorly through the pubic symphysis. Comparison: No prior CT abdomen or pelvis exam. Findings: Visualized lung bases show nothing acute. Liver shows no focal parenchymal abnormality. Liver is slightly generous in size. Spleen appears within normal limits. Adrenal glands show no nodule. Pancreas is within normal limits. Gallbladder contains no calcified gallstones. Kidneys show symmetric contrast enhancement without hydronephrosis or mass. Aorta shows atherosclerotic change which continues into the iliac vessels. No aneurysm is seen. No retroperitoneal adenopathy or mesenteric abnormalities are seen. Appendix is seen which is normal in size. No pelvic mass or adenopathy is noted. No free fluid or inflammatory change is seen. Delayed images show contrast excretion into both ureters. No ureteral dilatation is seen. Contrast is noted within the ureters and bladder. Bone window settings were reviewed which appear within normal limits for the patient's age. Impression: 1. Incidental finding as noted above. Nothing acute is seen on CT study of the abdomen and pelvis. Diagnostic code #2
--- NOTE | 2018-03-10 10:03 | CT ---
CT paranasal sinuses Technique: Multiple axial sections through the paranasal sinuses were obtained. Reconstructed coronal and sagittal images were reviewed. Findings: Moderate mucosal thickening seen within the right maxillary sinus. Retention cyst is noted within the left maxillary sinus measuring 8 mm. Mild mucosal thickening is scattered within the ethmoid sinuses. Mild mucosal thickening is seen within the sphenoid sinus. No air-fluid levels are seen within the paranasal sinuses. Mastoid sinuses appear clear. Middle ear cavities are clear. Mild nasal septal deviation is seen. Impression: 1. Mucosal thickening within the paranasal sinuses as described above. Findings most likely represent mild chronic sinusitis. 2. Other incidental findings. Diagnostic code #2
[2018-03-10] MEDS ORDERED: Magnesium Sulfate/Water 4 GM in Premix Bag 1 BAG IV ONE (10:30)
[2018-03-10] MEDS: Oxymetazoline 0.05% Nasal Spray 15 ML Bottle NAS PRN (15:40)
--- NOTE | 2018-03-10 18:13 | PCM.PN ---
- General Info Date of Service: 03/10/18 Admission Dx/Problem (Free Text): Admission Diagnosis/Problem Admission Diagnosis/Problem Pyelonephritis Subjective Update: Follow Up Functional Status: Reports: Pain Controlled, Tolerating Diet, Ambulating, Urinating, New Symptoms (hurting all over) Pain Score: 4 - Review of Systems General: Denies: Fever, Chills HEENT: Reports: Headaches, Sinus Congestion. Denies: Dysphasia, Eye Pain, Post Nasal Drip, Sore Throat, Rhinitis, Visual Changes Pulmonary: Denies: Shortness of Breath, Cough, Sputum, Wheezing Cardiovascular: Denies: Chest Pain, Palpitations, Dyspnea on Exertion, Lightheadedness Gastrointestinal: Denies: Abdominal Pain, Nausea, Vomiting Genitourinary: Reports: No Symptoms. Denies: Burning, Urgency Musculoskeletal: Reports: Neck Pain, Back Pain Skin: Denies: Cyanosis, Mottled, Pallor, Diaphoresis, Rash Neurological: Reports: Numbness (hands). Denies: Confusion, Difficulty Walking , Weakness, Gait Disturbance Psychiatric: Denies: Depression, Anxiety, Agitation, Hallucinations, Suicidal Ideation Systems Review Comment:: He is hurting all over. He has a head ache and his back still hurts. He has not been pleasant with staff. He argued with nursed on how to treat himself with insulin. He has been afebrile but with slightly worse WBC of 14K. His CRP is now at 17K. However he looks much better than last night. - Patient Data Vitals - Most Recent: Last Vital Signs Temp 37.4 C 03/10/18 15:32 Pulse 78 03/10/18 15:32 Resp 14 03/10/18 15:32 BP 109/54 L 03/10/18 15:32 Pulse Ox 95 03/10/18 15:32 Weight - Most Recent: 96.162 kg I&O - Last 24 Hours: Intake & Output 03/10/18 03/10/18 03/10/18 06:59 14:59 22:59 Intake Total 4144 814 6181 Output Total 400 650 Balance 1425 360 777 Lab Results Last 24 Hours: Laboratory Results - last 24 hr 03/09/18 03/09/18 03/09/18 Range/Units 18:30 18:30 18:30 WBC 13.93 H (4.23-9.07) K/mm3 RBC 4.33 L (4.63-6.08) M/mm3 Hgb 13.8 (13.7-17.5) gm/L Hct 39.4 L (40.1-51.0) % MCV 91.0 (79.0-92.2) fl MCH 31.9 (25.7-32.2) pg MCHC 35.0 (32.2-35.5) g/dl RDW Std Deviation 45.1 H (35.1-43.9) fL Plt Count 288 (163-337) K/mm3 MPV 8.8 L (9.4-12.3) fl Neut % (Auto) (34.0-67.9) % Lymph % (Auto) (21.8-53.1) % [place] % (Auto) (5.3-12.2) % Eos % (Auto) (0.8-7.0) Baso % (Auto) (0.1-1.2) % Neut # (Auto) (1.78-5.38) K/mm3 Lymph # (Auto) (1.32-3.57) K/mm3 [place] # (Auto) (0.30-0.82) K/mm3 Eos # (Auto) (0.04-0.54) K/mm3 Baso # (Auto) (0.01-0.08) K/mm3 Neutrophils % (Manual) 84 H (40-60) % Band Neutrophils % 0 (0-10) % Lymphocytes % (Manual) 12 L (20-40) % Atypical Lymphs % 0 % Monocytes % (Manual) 1 L (2-10) % Eosinophils % (Manual) 2 (0.8-7.0) % Basophils % (Manual) 1 (0.2-1.2) Platelet Estimate Adequate Plt Morphology Comment Normal RBC Morph Comment Normal ESR (0-15) mm/hr D-Dimer, Quantitative (0.19-0.50) mg/L Sodium 141 (136-145) mEq/L Potassium 3.6 (3.5-5.1) mEq/L Chloride 106 (98-107) mEq/L Carbon Dioxide 23 (21-32) mEq/L Anion Gap 15.6 H (5-15) BUN 24 H (7-18) mg/dL Creatinine 1.4 H (0.7-1.3) mg/dL Est Cr Clr Drug Dosing 55.64 mL/min Estimated GFR (MDRD) 52 (>60) mL/min BUN/Creatinine Ratio 17.1 (14-18) Glucose 121 H (74-106) mg/dL POC Glucose (70-105) mg/dL Hemoglobin A1c (4.50-6.20) % Lactic Acid (0.4-2.0) mmol/L Calcium 9.0 (8.5-10.1) mg/dL Magnesium (1.8-2.4) mg/dl Total Bilirubin 0.4 (0.2-1.0) mg/dL AST 19 (15-37) U/L ALT 23 (16-63) U/L Alkaline Phosphatase 97 (46-116) U/L C-Reactive Protein 6.4 H* (<1.0) mg/dL Total Protein 7.3 (6.4-8.2) g/dl Albumin 3.9 (3.4-5.0) g/dl Globulin 3.4 gm/dL Albumin/Globulin Ratio 1.2 (1-2) Triglycerides (<150) mg/dL Cholesterol (<200) mg/dL LDL Cholesterol Direct (<100) mg/dL HDL Cholesterol (40-59) mg/dL Lipase (73-393) U/L Urine Color (Yellow) Urine Appearance (Clear) Urine pH (5.0-8.0) Ur Specific [place] (1.005-1.030) Urine Protein (Negative) Urine Glucose (UA) (Negative) Urine Ketones (Negative) Urine Occult Blood (Negative) Urine Nitrite (Negative) Urine Bilirubin (Negative) Urine Urobilinogen (0.2-1.0) Ur Leukocyte Esterase (Negative) Urine RBC (0-5) /hpf Urine WBC (0-5) /hpf Ur Epithelial Cells (0-5) /hpf Urine Bacteria (FEW) /hpf Urine Mucus (FEW) /hpf Mycoplasma pneumon IgM Negative (NEGATIVE) 03/09/18 03/09/18 03/09/18 Range/Units 18:30 18:30 18:30 WBC (4.23-9.07) K/mm3 RBC (4.63-6.08) M/mm3 Hgb (13.7-17.5) gm/L Hct (40.1-51.0) % MCV (79.0-92.2) fl MCH (25.7-32.2) pg MCHC (32.2-35.5) g/dl RDW Std Deviation (35.1-43.9) fL Plt Count (163-337) K/mm3 MPV (9.4-12.3) fl Neut % (Auto) (34.0-67.9) % Lymph % (Auto) (21.8-53.1) % [place] % (Auto) (5.3-12.2) % Eos % (Auto) (0.8-7.0) Baso % (Auto) (0.1-1.2) % Neut # (Auto) (1.78-5.38) K/mm3 Lymph # (Auto) (1.32-3.57) K/mm3 [place] # (Auto) (0.30-0.82) K/mm3 Eos # (Auto) (0.04-0.54) K/mm3 Baso # (Auto) (0.01-0.08) K/mm3 Neutrophils % (Manual) (40-60) % Band Neutrophils % (0-10) % Lymphocytes % (Manual) (20-40) % Atypical Lymphs % % Monocytes % (Manual) (2-10) % Eosinophils % (Manual) (0.8-7.0) % Basophils % (Manual) (0.2-1.2) Platelet Estimate Plt Morphology Comment RBC Morph Comment ESR 14 (0-15) mm/hr D-Dimer, Quantitative (0.19-0.50) mg/L Sodium (136-145) mEq/L Potassium (3.5-5.1) mEq/L Chloride (98-107) mEq/L Carbon Dioxide (21-32) mEq/L Anion Gap (5-15) BUN (7-18) mg/dL Creatinine (0.7-1.3) mg/dL Est Cr Clr Drug Dosing mL/min Estimated GFR (MDRD) (>60) mL/min BUN/Creatinine Ratio (14-18) Glucose (74-106) mg/dL POC Glucose (70-105) mg/dL Hemoglobin A1c 6.80 H (4.50-6.20) % Lactic Acid (0.4-2.0) mmol/L Calcium (8.5-10.1) mg/dL Magnesium (1.8-2.4) mg/dl Total Bilirubin (0.2-1.0) mg/dL AST (15-37) U/L ALT (16-63) U/L Alkaline Phosphatase (46-116) U/L C-Reactive Protein (<1.0) mg/dL Total Protein (6.4-8.2) g/dl Albumin (3.4-5.0) g/dl Globulin gm/dL Albumin/Globulin Ratio (1-2) Triglycerides (<150) mg/dL Cholesterol (<200) mg/dL LDL Cholesterol Direct (<100) mg/dL HDL Cholesterol (40-59) mg/dL Lipase 56 L (73-393) U/L Urine Color (Yellow) Urine Appearance (Clear) Urine pH (5.0-8.0) Ur Specific [place] (1.005-1.030) Urine Protein (Negative) Urine Glucose (UA) (Negative) Urine Ketones (Negative) Urine Occult Blood (Negative) Urine Nitrite (Negative) Urine Bilirubin (Negative) Urine Urobilinogen (0.2-1.0) Ur Leukocyte Esterase (Negative) Urine RBC (0-5) /hpf Urine WBC (0-5) /hpf Ur Epithelial Cells (0-5) /hpf Urine Bacteria (FEW) /hpf Urine Mucus (FEW) /hpf Mycoplasma pneumon IgM (NEGATIVE) 03/09/18 03/09/18 03/09/18 Range/Units 18:40 20:02 20:40 WBC (4.23-9.07) K/mm3 RBC (4.63-6.08) M/mm3 Hgb (13.7-17.5) gm/L Hct (40.1-51.0) % MCV (79.0-92.2) fl MCH (25.7-32.2) pg MCHC (32.2-35.5) g/dl RDW Std Deviation (35.1-43.9) fL Plt Count (163-337) K/mm3 MPV (9.4-12.3) fl Neut % (Auto) (34.0-67.9) % Lymph % (Auto) (21.8-53.1) % [place] % (Auto) (5.3-12.2) % Eos % (Auto) (0.8-7.0) Baso % (Auto) (0.1-1.2) % Neut # (Auto) (1.78-5.38) K/mm3 Lymph # (Auto) (1.32-3.57) K/mm3 [place] # (Auto) (0.30-0.82) K/mm3 Eos # (Auto) (0.04-0.54) K/mm3 Baso # (Auto) (0.01-0.08) K/mm3 Neutrophils % (Manual) (40-60) % Band Neutrophils % (0-10) % Lymphocytes % (Manual) (20-40) % Atypical Lymphs % % Monocytes % (Manual) (2-10) % Eosinophils % (Manual) (0.8-7.0) % Basophils % (Manual) (0.2-1.2) Platelet Estimate Plt Morphology Comment RBC Morph Comment ESR (0-15) mm/hr D-Dimer, Quantitative 0.28 (0.19-0.50) mg/L Sodium (136-145) mEq/L Potassium (3.5-5.1) mEq/L Chloride (98-107) mEq/L Carbon Dioxide (21-32) mEq/L Anion Gap (5-15) BUN (7-18) mg/dL Creatinine (0.7-1.3) mg/dL Est Cr Clr Drug Dosing mL/min Estimated GFR (MDRD) (>60) mL/min BUN/Creatinine Ratio (14-18) Glucose (74-106) mg/dL POC Glucose (70-105) mg/dL Hemoglobin A1c (4.50-6.20) % Lactic Acid 1.7 (0.4-2.0) mmol/L Calcium (8.5-10.1) mg/dL Magnesium (1.8-2.4) mg/dl Total Bilirubin (0.2-1.0) mg/dL AST (15-37) U/L ALT (16-63) U/L Alkaline Phosphatase (46-116) U/L C-Reactive Protein (<1.0) mg/dL Total Protein (6.4-8.2) g/dl Albumin (3.4-5.0) g/dl Globulin gm/dL Albumin/Globulin Ratio (1-2) Triglycerides (<150) mg/dL Cholesterol (<200) mg/dL LDL Cholesterol Direct (<100) mg/dL HDL Cholesterol (40-59) mg/dL Lipase (73-393) U/L Urine Color Yellow (Yellow) Urine Appearance Slt cloudy H (Clear) Urine pH 6.0 (5.0-8.0) Ur Specific [place] 1.025 (1.005-1.030) Urine Protein 1+ H (Negative) Urine Glucose (UA) Negative (Negative) Urine Ketones Negative (Negative) Urine Occult Blood Trace-intact H (Negative) Urine Nitrite Negative (Negative) Urine Bilirubin Negative (Negative) Urine Urobilinogen 0.2 (0.2-1.0) Ur Leukocyte Esterase 2+ H (Negative) Urine RBC 5-10 H (0-5) /hpf Urine WBC 50-75 H (0-5) /hpf Ur Epithelial Cells 5-10 H (0-5) /hpf Urine Bacteria Moderate H (FEW) /hpf Urine Mucus Not seen (FEW) /hpf Mycoplasma pneumon IgM (NEGATIVE) 03/09/18 03/10/18 03/10/18 Range/Units 22:54 01:01 05:58 WBC 14.00 H (4.23-9.07) K/mm3 RBC 3.85 L (4.63-6.08) M/mm3 Hgb 11.9 L (13.7-17.5) gm/L Hct 35.7 L (40.1-51.0) % MCV 92.7 H (79.0-92.2) fl MCH 30.9 (25.7-32.2) pg MCHC 33.3 (32.2-35.5) g/dl RDW Std Deviation 46.0 H (35.1-43.9) fL Plt Count 226 (163-337) K/mm3 MPV 8.8 L (9.4-12.3) fl Neut % (Auto) 79.6 H (34.0-67.9) % Lymph % (Auto) 11.3 L (21.8-53.1) % [place] % (Auto) 7.9 (5.3-12.2) % Eos % (Auto) 0.8 (0.8-7.0) Baso % (Auto) 0.2 (0.1-1.2) % Neut # (Auto) 11.15 H (1.78-5.38) K/mm3 Lymph # (Auto) 1.58 (1.32-3.57) K/mm3 [place] # (Auto) 1.10 H (0.30-0.82) K/mm3 Eos # (Auto) 0.11 (0.04-0.54) K/mm3 Baso # (Auto) 0.03 (0.01-0.08) K/mm3 Neutrophils % (Manual) (40-60) % Band Neutrophils % (0-10) % Lymphocytes % (Manual) (20-40) % Atypical Lymphs % % Monocytes % (Manual) (2-10) % Eosinophils % (Manual) (0.8-7.0) % Basophils % (Manual) (0.2-1.2) Platelet Estimate Plt Morphology Comment RBC Morph Comment ESR (0-15) mm/hr D-Dimer, Quantitative (0.19-0.50) mg/L Sodium (136-145) mEq/L Potassium (3.5-5.1) mEq/L Chloride (98-107) mEq/L Carbon Dioxide (21-32) mEq/L Anion Gap (5-15) BUN (7-18) mg/dL Creatinine (0.7-1.3) mg/dL Est Cr Clr Drug Dosing mL/min Estimated GFR (MDRD) (>60) mL/min BUN/Creatinine Ratio (14-18) Glucose (74-106) mg/dL POC Glucose 96 145 H (70-105) mg/dL Hemoglobin A1c (4.50-6.20) % Lactic Acid (0.4-2.0) mmol/L Calcium (8.5-10.1) mg/dL Magnesium (1.8-2.4) mg/dl Total Bilirubin (0.2-1.0) mg/dL AST (15-37) U/L ALT (16-63) U/L Alkaline Phosphatase (46-116) U/L C-Reactive Protein (<1.0) mg/dL Total Protein (6.4-8.2) g/dl Albumin (3.4-5.0) g/dl Globulin gm/dL Albumin/Globulin Ratio (1-2) Triglycerides (<150) mg/dL Cholesterol (<200) mg/dL LDL Cholesterol Direct (<100) mg/dL HDL Cholesterol (40-59) mg/dL Lipase (73-393) U/L Urine Color (Yellow) Urine Appearance (Clear) Urine pH (5.0-8.0) Ur Specific [place] (1.005-1.030) Urine Protein (Negative) Urine Glucose (UA) (Negative) Urine Ketones (Negative) Urine Occult Blood (Negative) Urine Nitrite (Negative) Urine Bilirubin (Negative) Urine Urobilinogen (0.2-1.0) Ur Leukocyte Esterase (Negative) Urine RBC (0-5) /hpf Urine WBC (0-5) /hpf Ur Epithelial Cells (0-5) /hpf Urine Bacteria (FEW) /hpf Urine Mucus (FEW) /hpf Mycoplasma pneumon IgM (NEGATIVE) 03/10/18 03/10/18 03/10/18 Range/Units 05:58 06:46 11:22 WBC (4.23-9.07) K/mm3 RBC (4.63-6.08) M/mm3 Hgb (13.7-17.5) gm/L Hct (40.1-51.0) % MCV (79.0-92.2) fl MCH (25.7-32.2) pg MCHC (32.2-35.5) g/dl RDW Std Deviation (35.1-43.9) fL Plt Count (163-337) K/mm3 MPV (9.4-12.3) fl Neut % (Auto) (34.0-67.9) % Lymph % (Auto) (21.8-53.1) % [place] % (Auto) (5.3-12.2) % Eos % (Auto) (0.8-7.0) Baso % (Auto) (0.1-1.2) % Neut # (Auto) (1.78-5.38) K/mm3 Lymph # (Auto) (1.32-3.57) K/mm3 [place] # (Auto) (0.30-0.82) K/mm3 Eos # (Auto) (0.04-0.54) K/mm3 Baso # (Auto) (0.01-0.08) K/mm3 Neutrophils % (Manual) (40-60) % Band Neutrophils % (0-10) % Lymphocytes % (Manual) (20-40) % Atypical Lymphs % % Monocytes % (Manual) (2-10) % Eosinophils % (Manual) (0.8-7.0) % Basophils % (Manual) (0.2-1.2) Platelet Estimate Plt Morphology Comment RBC Morph Comment ESR (0-15) mm/hr D-Dimer, Quantitative (0.19-0.50) mg/L Sodium 141 (136-145) mEq/L Potassium 4.1 (3.5-5.1) mEq/L Chloride 109 H (98-107) mEq/L Carbon Dioxide 22 (21-32) mEq/L Anion Gap 14.1 (5-15) BUN 25 H (7-18) mg/dL Creatinine 1.3 (0.7-1.3) mg/dL Est Cr Clr Drug Dosing 59.92 mL/min Estimated GFR (MDRD) 57 (>60) mL/min BUN/Creatinine Ratio 19.2 H (14-18) Glucose 126 H (74-106) mg/dL POC Glucose 128 H 157 H (70-105) mg/dL Hemoglobin A1c (4.50-6.20) % Lactic Acid (0.4-2.0) mmol/L Calcium 7.9 L (8.5-10.1) mg/dL Magnesium 1.2 L (1.8-2.4) mg/dl Total Bilirubin (0.2-1.0) mg/dL AST (15-37) U/L ALT (16-63) U/L Alkaline Phosphatase (46-116) U/L C-Reactive Protein 17.2 H* (<1.0) mg/dL Total Protein (6.4-8.2) g/dl Albumin (3.4-5.0) g/dl Globulin gm/dL Albumin/Globulin Ratio (1-2) Triglycerides 158 H (<150) mg/dL Cholesterol 165 (<200) mg/dL LDL Cholesterol Direct 101 H* (<100) mg/dL HDL Cholesterol 43.0 (40-59) mg/dL Lipase (73-393) U/L Urine Color (Yellow) Urine Appearance (Clear) Urine pH (5.0-8.0) Ur Specific [place] (1.005-1.030) Urine Protein (Negative) Urine Glucose (UA) (Negative) Urine Ketones (Negative) Urine Occult Blood (Negative) Urine Nitrite (Negative) Urine Bilirubin (Negative) Urine Urobilinogen (0.2-1.0) Ur Leukocyte Esterase (Negative) Urine RBC (0-5) /hpf Urine WBC (0-5) /hpf Ur Epithelial Cells (0-5) /hpf Urine Bacteria (FEW) /hpf Urine Mucus (FEW) /hpf Mycoplasma pneumon IgM (NEGATIVE) 03/10/18 Range/Units 17:15 WBC (4.23-9.07) K/mm3 RBC (4.63-6.08) M/mm3 Hgb (13.7-17.5) gm/L Hct (40.1-51.0) % MCV (79.0-92.2) fl MCH (25.7-32.2) pg MCHC (32.2-35.5) g/dl RDW Std Deviation (35.1-43.9) fL Plt Count (163-337) K/mm3 MPV (9.4-12.3) fl Neut % (Auto) (34.0-67.9) % Lymph % (Auto) (21.8-53.1) % [place] % (Auto) (5.3-12.2) % Eos % (Auto) (0.8-7.0) Baso % (Auto) (0.1-1.2) % Neut # (Auto) (1.78-5.38) K/mm3 Lymph # (Auto) (1.32-3.57) K/mm3 [place] # (Auto) (0.30-0.82) K/mm3 Eos # (Auto) (0.04-0.54) K/mm3 Baso # (Auto) (0.01-0.08) K/mm3 Neutrophils % (Manual) (40-60) % Band Neutrophils % (0-10) % Lymphocytes % (Manual) (20-40) % Atypical Lymphs % % Monocytes % (Manual) (2-10) % Eosinophils % (Manual) (0.8-7.0) % Basophils % (Manual) (0.2-1.2) Platelet Estimate Plt Morphology Comment RBC Morph Comment ESR (0-15) mm/hr D-Dimer, Quantitative (0.19-0.50) mg/L Sodium (136-145) mEq/L Potassium (3.5-5.1) mEq/L Chloride (98-107) mEq/L Carbon Dioxide (21-32) mEq/L Anion Gap (5-15) BUN (7-18) mg/dL Creatinine (0.7-1.3) mg/dL Est Cr Clr Drug Dosing mL/min Estimated GFR (MDRD) (>60) mL/min BUN/Creatinine Ratio (14-18) Glucose (74-106) mg/dL POC Glucose 139 H (70-105) mg/dL Hemoglobin A1c (4.50-6.20) % Lactic Acid (0.4-2.0) mmol/L Calcium (8.5-10.1) mg/dL Magnesium (1.8-2.4) mg/dl Total Bilirubin (0.2-1.0) mg/dL AST (15-37) U/L ALT (16-63) U/L Alkaline Phosphatase (46-116) U/L C-Reactive Protein (<1.0) mg/dL Total Protein (6.4-8.2) g/dl Albumin (3.4-5.0) g/dl Globulin gm/dL Albumin/Globulin Ratio (1-2) Triglycerides (<150) mg/dL Cholesterol (<200) mg/dL LDL Cholesterol Direct (<100) mg/dL HDL Cholesterol (40-59) mg/dL Lipase (73-393) U/L Urine Color (Yellow) Urine Appearance (Clear) Urine pH (5.0-8.0) Ur Specific [place] (1.005-1.030) Urine Protein (Negative) Urine Glucose (UA) (Negative) Urine Ketones (Negative) Urine Occult Blood (Negative) Urine Nitrite (Negative) Urine Bilirubin (Negative) Urine Urobilinogen (0.2-1.0) Ur Leukocyte Esterase (Negative) Urine RBC (0-5) /hpf Urine WBC (0-5) /hpf Ur Epithelial Cells (0-5) /hpf Urine Bacteria (FEW) /hpf Urine Mucus (FEW) /hpf Mycoplasma pneumon IgM (NEGATIVE) [place] Results Last 24 Hours: Microbiology 03/09/18 19:15 Quick Strep Confirmation Culture - Preliminary Throat Group A Streptococcus Rapid Screen - Final NEGATIVE STREP A SCREEN 03/09/18 20:02 Urine Culture - Preliminary Urine, Clean Catch Gram Negative Rods 03/09/18 19:20 Influenza Type A Antigen Screen - Final Nasal Aspirate, Unspecified NEGATIVE INFLUENZA A VIRUS AG Influenza Type B Antigen Screen - Final NEGATIVE INFLUENZA B VIRUS AG Med Orders - Current: Current Medications Acetaminophen (Tylenol) 650 mg PO Q4H PRN PRN Reason: Pain (Mild 1-3)/fever Acetaminophen/Butalbital/Caffeine (Fioricet 325-50-40 Mg) 2 tab PO Q6H PRN PRN Reason: Headache Last Admin: 03/10/18 00:11 Dose: 2 tab Hydrocodone Bitart/Acetaminophen ([place] 325-5 Mg) 1 tab PO Q4H PRN PRN Reason: Pain (moderate 4-6) Last Admin: 03/10/18 17:32 Dose: 1 tab Albuterol/Ipratropium (Duoneb 3.0-0.5 Mg/3 Ml) 3 ml NEB Q4H PRN PRN Reason: Shortness Of Breath/wheezing Aspirin (Halfprin) 81 mg PO DAILY [facility] Last Admin: 03/10/18 08:23 Dose: 81 mg Bisacodyl (Dulcolax) 5 mg PO DAILY PRN PRN Reason: Constipation Clonazepam (Klonopin) 1 mg PO DAILY [facility] Last Admin: 03/10/18 08:23 Dose: 1 mg Docusate Sodium (Colace) 100 mg PO BID PRN PRN Reason: Constipation Fenofibrate (Tricor) 145 mg PO DAILY [facility] Last Admin: 03/10/18 08:23 Dose: 145 mg Fish Oil (Fish Oil) 1 gm PO DAILY [facility] Last Admin: 03/10/18 08:23 Dose: 1 gm Guaifenesin/Phenylephrine HCl (Robitussin Dm) 10 ml PO TID@0700,1400,2100 PRN PRN Reason: Cough Hydralazine HCl (Apresoline) 20 mg IVPUSH Q4H PRN PRN Reason: Hypertension Hydromorphone HCl (Dilaudid) 0.5 mg IVPUSH Q2H PRN PRN Reason: Pain (severe 7-10) Last Admin: 03/10/18 11:50 Dose: 0.5 mg Promethazine HCl 12.5 mg/ (Sodium Chloride) 50.5 mls @ 100 mls/hr IV Q6H PRN PRN Reason: Nausea/Vomiting Sodium Chloride (Normal Saline) 1,000 mls @ 125 mls/hr IV ASDIRECTED [facility] Last Admin: 03/10/18 15:07 Dose: 125 mls/hr Piperacillin Sod/Tazobactam (Sod 4.5 gm/ Sodium Chloride) 100 mls @ 25 mls/hr IV Q8H [facility] Last Admin: 03/10/18 15:09 Dose: 25 mls/hr Levofloxacin/Dextrose 500 mg/ (Premix) 100 mls @ 100 mls/hr IV Q24H [facility] Insulin Human Lispro (Humalog) 0 unit SUBCUT QIDACANDBED [facility]; Protocol Last Admin: 03/10/18 17:21 Dose: 4 units Lisinopril (Prinivil) 10 mg PO DAILY [facility] Last Admin: 03/10/18 08:26 Dose: 10 mg Lorazepam (Ativan) 2 mg IVPUSH Q4H PRN PRN Reason: Seizures Lorazepam (Ativan) 1 mg IV Q6H PRN PRN Reason: Anxiety Magnesium Sulfate (Pharmacy To Dose - Magnesium Replacement) 0 dose .XX ASDIRECTED PRN PRN Reason: RX TO WATCH MAG LEVEL Metoprolol Tartrate (Lopressor) 5 mg IVPUSH Q4H PRN PRN Reason: Tachycardia Nicotine (Habitrol) 21 mg TRDERM DAILY [facility] Ondansetron HCl (Zofran) 4 mg IV Q6H PRN PRN Reason: Nausea/Vomiting Last Admin: 03/10/18 06:48 Dose: 4 mg Oxymetazoline HCl (Afrin Original 0.05% Nasal [place]) 1 - 2 ml BIGG Q12HR PRN PRN Reason: Congestion Last Admin: 03/10/18 15:40 Dose: 1 spray Pantoprazole Sodium (Protonix) 40 mg PO ACBREAKFAST [facility] Last Admin: 03/10/18 08:26 Dose: 40 mg Phenytoin Sodium (Phenytoin) 100 mg PO DAILY [facility] Last Admin: 03/10/18 08:23 Dose: 100 mg Polyethylene Glycol (Miralax) 17 gm PO DAILY PRN PRN Reason: Constipation Potassium Chloride (Pharmacy To Dose - Potassium Replacement) 0 dose .XX ASDIRECTED PRN PRN Reason: RX TO WATCH K LEVELS Rosuvastatin Calcium (Crestor) 10 mg PO DAILY [facility] Last Admin: 03/10/18 08:23 Dose: 10 mg Saccharomyces Boulardii (Florastor) 250 mg PO DAILY [facility] Last Admin: 03/10/18 08:26 Dose: 250 mg Senna/Docusate Sodium (Senna Plus) 1 tab PO BID PRN PRN Reason: Constipation Sodium Chloride (Saline Flush) 10 ml FLUSH ASDIRECTED PRN PRN Reason: Keep Vein Open Last Admin: 03/09/18 18:55 Dose: 10 ml Temazepam (Restoril) 15 mg PO BEDTIME PRN PRN Reason: Sleep Last Admin: 03/10/18 00:12 Dose: 15 mg Discontinued Medications Acetaminophen (Tylenol) Confirm Administered Dose 975 mg .ROUTE .STK-MED ONE Stop: 03/09/18 20:59 Last Admin: 03/09/18 22:59 Dose: Not Given Acetaminophen (Tylenol) 975 mg PO NOW ONE Stop: 03/09/18 21:02 Last Admin: 03/09/18 21:02 Dose: 975 mg Albuterol (Proventil Neb Soln) 2.5 mg NEB ONETIME ONE Stop: 03/09/18 18:14 Last Admin: 03/09/18 18:29 Dose: 2.5 mg Diatrizoate Meglum/Diatrizoate Sod (Gastrografin 37%) 120 ml PO ONETIME ONE Stop: 03/10/18 08:15 Last Admin: 03/10/18 08:47 Dose: 90 ml Hydromorphone HCl (Dilaudid) 0.5 mg IVPUSH ONETIME ONE Stop: 03/09/18 18:15 Last Admin: 03/09/18 19:23 Dose: 0.5 mg Hydromorphone HCl (Dilaudid) 0.5 mg IVPUSH ONETIME ONE Stop: 03/09/18 21:39 Last Admin: 03/09/18 21:46 Dose: 0.5 mg Hydromorphone HCl (Dilaudid) 0.5 mg IVPUSH Q2H PRN PRN Reason: Pain (severe 7-10) Sodium Chloride (Normal Saline) 1,000 mls @ 999 mls/hr IV ONETIME ONE Stop: 03/09/18 19:13 Last Admin: 03/09/18 18:50 Dose: 999 mls/hr Sodium Chloride (Normal Saline) 1,000 mls @ 999 mls/hr IV ONETIME ONE Stop: 03/09/18 19:16 Last Admin: 03/09/18 19:56 Dose: 999 mls/hr Levofloxacin/Dextrose 750 mg/ (Premix) 150 mls @ 100 mls/hr IV ONETIME ONE Stop: 03/09/18 22:14 Last Admin: 03/09/18 21:02 Dose: 100 mls/hr Levofloxacin/Dextrose 500 mg/ (Premix) 100 mls @ 100 mls/hr IV Q24H [facility] Last Admin: 03/10/18 09:44 Dose: Not Given Piperacillin Sod/Tazobactam (Sod 4.5 gm/ Sodium Chloride) 100 mls @ 200 mls/hr IV ONETIME ONE Stop: 03/09/18 22:44 Last Admin: 03/09/18 22:50 Dose: 200 mls/hr Magnesium Sulfate 4 gm/ Premix 100 mls @ 25 mls/hr IV ONETIME ONE Stop: 03/10/18 14:29 Last Admin: 03/10/18 11:14 Dose: 25 mls/hr Insulin Human Lispro (Humalog) 0 unit SUBCUT QIDACANDBED [facility]; Protocol Last Admin: 03/10/18 12:24 Dose: Not Given Iopamidol (Isovue-300 (61%)) 150 ml IVPUSH ONETIME ONE Stop: 03/10/18 08:15 Last Admin: 03/10/18 08:48 Dose: 150 ml Ketorolac Tromethamine (Toradol) 30 mg IVPUSH ONETIME ONE Stop: 03/09/18 18:14 Last Admin: 03/09/18 18:53 Dose: 30 mg Miscellaneous Information (Remove Patch) 0 ea TRDERM DAILY [facility] Last Admin: 03/10/18 08:26 Dose: Not Given Non-Formulary Medication (Krill Oil [Krill Oil]) 1 tab PO DAILY [facility] Phenytoin Sodium (Phenytoin) 300 mg PO DAILY [facility] Potassium Chloride (Klor-Con M20) 40 meq PO Q4H [facility] Stop: 03/10/18 02:01 Last Admin: 03/10/18 02:00 Dose: Not Given Sodium Chloride (Saline Flush) 10 ml FLUSH ONETIME PRN PRN Reason: IV FLUSH Stop: 03/10/18 18:00 Last Admin: 03/10/18 08:48 Dose: 10 ml - Exam General: Alert, Oriented, Cooperative, No Acute Distress HEENT: Pupils Equal, Pupils Reactive, EOMI, Mucous Membr. Moist/Powers Neck: Supple, Trachea Midline, No JVD, No Thyromegaly Lungs: Normal Respiratory Effort, Decreased Breath Sounds Cardiovascular: Regular Rate, Regular Rhythm GI/Abdominal Exam: Normal Bowel Sounds, Soft, Non-Tender, No Organomegaly, No Distention, No Abnormal Bruit (Male) Exam: Other (suprapubic tenderness) Back Exam: Normal Inspection, CVA Tenderness (L), CVA Tenderness (R), Decreased Range of Motion, Vertebral Tenderness Extremities: Normal Inspection, Normal Range of Motion, Non-Tender, No Pedal Edema, Normal Capillary Refill Peripheral Pulses: 2+: Dorsalis Pedis (L), Dorsalis Pedis (R) Skin: Warm, Dry, Intact Neurological: No New Focal Deficit Psy/Mental Status: Alert, Normal Affect, Normal Mood - Problem List Review Problem List Initiated/Reviewed/Updated: Yes - My Orders Last 24 Hours: My Active Orders 03/09/18 21:39 LORazepam [Ativan] 2 mg IVPUSH Q4H PRN Metoprolol Tartrate [Lopressor] 5 mg IVPUSH Q4H PRN hydrALAZINE [Apresoline] 20 mg IVPUSH Q4H PRN 03/09/18 21:40 Height and Weight [RC] 04 Intake and Output [RC] 04,16 Oxygen Therapy [RC] PRN Up ad Delaney [RC] ASDIRECTED VTE/DVT Education [RC] DAILY Vital Signs [RC] 03,09,15,21 Consult to Case Management [CONS] Routine Consult to [employer] [CONS] Routine OT Evaluation and Treatment [CONS] Routine PT Evaluation and Treatment [CONS] Routine Acetaminophen [Tylenol] 650 mg PO Q4H PRN Acetaminophen/HYDROcodone [Hoffman 325-5 MG] 1 tab PO Q4H PRN Albuterol/Ipratropium [DuoNeb 3.0-0.5 MG/3 ML] 3 ml NEB Q4H PRN Bisacodyl [Dulcolax] 5 mg PO DAILY PRN Docusate Sodium [Colace] 100 mg PO BID PRN Docusate Sodium/Sennosides [Senna Plus] 1 tab PO BID PRN LORazepam [Ativan] 1 mg IV Q6H PRN Ondansetron [Zofran] 4 mg IV Q6H PRN Polyethylene Glycol 3350 [MiraLAX] 17 gm PO DAILY PRN Promethazine [Phenergan] 12.5 mg Sodium Chloride 0.9% [Normal Saline] 50 ml IV Q6H Temazepam [Restoril] 15 mg PO BEDTIME PRN Resuscitation Status Routine 03/09/18 21:43 RT Aerosol Therapy [RC] ASDIRECTED 03/09/18 21:45 Magnesium Rep Pharmacy to Dose [Pharmacy to Dose - Magnesium Replacement] 0 dose .XX ASDIRECTED PRN Potassium Rep Pharmacy to Dose [Pharmacy to Dose - Potassium Replacement] 0 dose .XX ASDIRECTED PRN Sodium Chloride 0.9% [Normal Saline] 1,000 ml IV ASDIRECTED 03/09/18 21:55 Accu Check [Blood Glucose Check, Bedside] [] QIDACANDBED 03/09/18 22:00 ClonazePAM [KlonoPIN] 1 mg PO DAILY 03/09/18 22:20 Acetaminophen/Butalbital/Caff [Fioricet 325-50-40 MG] 2 tab PO Q6H PRN 03/09/18 22:22 CULTURE SPUTUM + SMEAR [RM] Routine 03/09/18 22:24 Oxymetazoline [Afrin Original 0.05% Nasal [place]] 1 - 2 ml BIGG Q12HR PRN 03/10/18 00:15 HYDROmorphone [Dilaudid] 0.5 mg IVPUSH Q2H PRN 03/10/18 06:00 Pantoprazole [ProTONIX] 40 mg PO ACBREAKFAST Piperacillin/Tazobactam [Zosyn] 4.5 gm Sodium Chloride 0.9% [Normal Saline] 100 ml IV Q8H 03/10/18 07:00 Dextromethorphan/guaiFENesin [Robitussin DM] 10 ml PO TID@0700,1400,2100 PRN 03/10/18 09:00 Aspirin [Halfprin] 81 mg PO DAILY Fenofibrate Nanocrystallized [Tricor] 145 mg PO DAILY Fish Oil/[place]-3 Fatty Acids [Fish Oil] 1 gm PO DAILY Lisinopril [Prinivil] 10 mg PO DAILY Phenytoin 100 mg PO DAILY Rosuvastatin [Crestor] 10 mg PO DAILY Saccharomyces Boulardii [Florastor] 250 mg PO DAILY 03/10/18 12:24 Communication Order [RC] QID Insulin Lispro [HumaLOG] See Protocol SUBCUT QIDACANDBED 03/10/18 18:00 Nicotine [Habitrol] 21 mg TRDERM DAILY 03/10/18 21:00 Levofloxacin/Dextrose 5%-Water [Levaquin in D5W 500 MG/100 ML] 500 mg Premix Bag 1 bag IV Q24H 03/11/18 05:11 BASIC METABOLIC PANEL,BMP [CHEM] AM C-REACTIVE PROTEIN [CHEM] AM CBC WITH AUTO DIFF [HEME] AM MAGNESIUM [CHEM] AM 03/12/18 05:11 BASIC METABOLIC PANEL,BMP [CHEM] AM C-REACTIVE PROTEIN [CHEM] AM CBC WITH AUTO DIFF [HEME] AM MAGNESIUM [CHEM] AM 03/13/18 05:11 BASIC METABOLIC PANEL,BMP [CHEM] AM C-REACTIVE PROTEIN [CHEM] AM CBC WITH AUTO DIFF [HEME] AM MAGNESIUM [CHEM] AM 03/14/18 05:11 BASIC METABOLIC PANEL,BMP [CHEM] AM C-REACTIVE PROTEIN [CHEM] AM CBC WITH AUTO DIFF [HEME] AM MAGNESIUM [CHEM] AM - Plan Plan:: Assessment/Plan: Acute: S/p Fever - Documented tem of 38.6 C - 2/2 Above - WBC 13.93 and CRP 6.4 - Treatment as above Pyelonephritis: - Risk Factors: Poorly controlled DM1 - A1C 6.8 and BS 121 - Abdominal/Pelvis CT scan-nothing acute seen - IV Levaquin and Zosyn due to immuno-suppressed state - Blood Cx x2-pending - UA Cx shows GNR Bronchitis, Unchanged - Smokes cigarettes for 40 years now - CXR no obvious infiltrates - Productive cough and shortness of breath - Decongestant and Expectorant - Sputum Cx, and Strep Pneumonia Ag - Mycoplasma-negative URI/Sinusitis, Improved - Facial Tenderness - Facial CT scan shows chronic sinusitis - Nares are congested and narrowed - Nasal spray and dencongestant Renal Insufficiency, Improved - Unknown baseline Chronic: HTN HLD CAD S/p Stent Placement DM2 on Insulin GERD Seizure Disorder Chronic Pain Syndrome Nicotine Use Disorder Plan: He is clinically stable Continue current treatment Routine AM Labs PT/OT consult SW/CM brennan d/c planning Code status:1 Patient wants to direct his insulin treatment. He has been unpleasant with the nursing staff. So offered, we will use his regimen and if he bottoms out; right away he will have to use our protocol. We will go ahead and d/c ISS. Updated patient about the results of his CT scans.
[2018-03-10] MEDS: Nicotine 21 MG/24 Hr Patch TRDERM SCH (18:24)
[2018-03-10] MEDS: Levofloxacin/Dextrose 5%-Water 500 MG in Premix Bag 1 BAG IV SCH (21:42)
[2018-03-10] MEDS: Loratadine 10 MG Tab PO SCH (21:48)
[2018-03-11] MEDS: Acetaminophen/HYDROcodone 325-5 MG Tab PO PRN ×2 (01:03→21:33)
[2018-03-11] MEDS: Piperacillin/Tazobactam 4.5 GM in Sodium Chloride 0.9% 100 ML IV SCH ×3 (07:16→21:33)
[2018-03-11] MEDS: Pantoprazole 40 MG Tab.CR PO SCH (07:16)
[2018-03-11] MEDS: Insulin Lispro 100 Unit/ML 3 ML KwikPen SUBCUT SCH ×4 (07:16→21:33)
[2018-03-11] MEDS: Fish Oil/Omega-3 Fatty Acids 1 Gm Cap PO SCH (08:52)
[2018-03-11] MEDS: Saccharomyces Boulardii (Probiotic) 250 MG Cap PO SCH (08:52)
[2018-03-11] MEDS: Fenofibrate Nanocrystallized 145 MG Tab PO SCH (08:53)
[2018-03-11] MEDS: Phenytoin 100 MG Cap.ER PO SCH (08:53)
[2018-03-11] MEDS: Lisinopril 10 MG Tab PO SCH (08:53)
[2018-03-11] MEDS: ClonazePAM 1 MG Tab PO SCH (08:53)
[2018-03-11] MEDS: Aspirin 81 MG Tab.EC PO SCH (08:53)
[2018-03-11] MEDS: Rosuvastatin 10 MG Tab PO SCH (08:53)
[2018-03-11] MEDS: Nicotine 21 MG/24 Hr Patch TRDERM SCH (08:54)
--- NOTE | 2018-03-11 09:18 | PCM.PN ---
- General Info Date of Service: 03/11/18 Admission Dx/Problem (Free Text): Admission Diagnosis/Problem Admission Diagnosis/Problem Pyelonephritis Subjective Update: Follow Up Functional Status: Reports: Pain Controlled, Tolerating Diet, Ambulating, Urinating. Denies: New Symptoms - Review of Systems General: Denies: Fever, Weakness, Fatigue, Malaise, Chills HEENT: Reports: No Symptoms Pulmonary: Denies: Shortness of Breath Cardiovascular: Denies: Chest Pain, Dyspnea on Exertion, Lightheadedness Gastrointestinal: Denies: Abdominal Pain, Decreased Appetite, Nausea, Vomiting Musculoskeletal: Reports: Neck Pain, Back Pain Skin: Denies: Cyanosis, Mottled, Pallor, Diaphoresis, Pruritis Neurological: Denies: Confusion, Difficulty Walking, Weakness, Gait Disturbance Psychiatric: Denies: Depression, Anxiety, Agitation, Hallucinations Systems Review Comment:: No overnight or acute issues. He rested well. He looks really well this AM. He has no complaints. He remains afebrile with improving leukocytosis. His CRP is way up (28.3) compared yesterday (17.2). - Patient Data Vitals - Most Recent: Last Vital Signs Temp 37.1 C 03/11/18 08:20 Pulse 73 03/11/18 08:20 Resp 16 03/11/18 08:20 BP 126/59 L 03/11/18 08:53 Pulse Ox 94 L 03/11/18 08:20 Weight - Most Recent: 97.432 kg I&O - Last 24 Hours: Intake & Output 03/10/18 03/11/18 03/11/18 22:59 06:59 14:59 Intake Total 1787 2540 Output Total 650 1450 Balance 1137 1090 Lab Results Last 24 Hours: Laboratory Results - last 24 hr 03/10/18 03/10/18 03/10/18 Range/Units 11:22 17:15 20:50 WBC (4.23-9.07) K/mm3 RBC (4.63-6.08) M/mm3 Hgb (13.7-17.5) gm/L Hct (40.1-51.0) % MCV (79.0-92.2) fl MCH (25.7-32.2) pg MCHC (32.2-35.5) g/dl RDW Std Deviation (35.1-43.9) fL Plt Count (163-337) K/mm3 MPV (9.4-12.3) fl Neut % (Auto) (34.0-67.9) % Lymph % (Auto) (21.8-53.1) % Citrus % (Auto) (5.3-12.2) % Eos % (Auto) (0.8-7.0) Baso % (Auto) (0.1-1.2) % Neut # (Auto) (1.78-5.38) K/mm3 Lymph # (Auto) (1.32-3.57) K/mm3 Citrus # (Auto) (0.30-0.82) K/mm3 Eos # (Auto) (0.04-0.54) K/mm3 Baso # (Auto) (0.01-0.08) K/mm3 Sodium (136-145) mEq/L Potassium (3.5-5.1) mEq/L Chloride (98-107) mEq/L Carbon Dioxide (21-32) mEq/L Anion Gap (5-15) BUN (7-18) mg/dL Creatinine (0.7-1.3) mg/dL Est Cr Clr Drug Dosing mL/min Estimated GFR (MDRD) (>60) mL/min BUN/Creatinine Ratio (14-18) Glucose (74-106) mg/dL POC Glucose 157 H 139 H 143 H (70-105) mg/dL Calcium (8.5-10.1) mg/dL Magnesium (1.8-2.4) mg/dl C-Reactive Protein (<1.0) mg/dL 03/11/18 03/11/18 03/11/18 Range/Units 06:01 06:01 07:15 WBC 12.08 H (4.23-9.07) K/mm3 RBC 3.55 L (4.63-6.08) M/mm3 Hgb 11.1 L (13.7-17.5) gm/L Hct 33.2 L (40.1-51.0) % MCV 93.5 H (79.0-92.2) fl MCH 31.3 (25.7-32.2) pg MCHC 33.4 (32.2-35.5) g/dl RDW Std Deviation 45.1 H (35.1-43.9) fL Plt Count 203 (163-337) K/mm3 MPV 8.9 L (9.4-12.3) fl Neut % (Auto) 76.6 H (34.0-67.9) % Lymph % (Auto) 14.7 L (21.8-53.1) % Citrus % (Auto) 7.1 (5.3-12.2) % Eos % (Auto) 1.2 (0.8-7.0) Baso % (Auto) 0.2 (0.1-1.2) % Neut # (Auto) 9.25 H (1.78-5.38) K/mm3 Lymph # (Auto) 1.78 (1.32-3.57) K/mm3 Citrus # (Auto) 0.86 H (0.30-0.82) K/mm3 Eos # (Auto) 0.14 (0.04-0.54) K/mm3 Baso # (Auto) 0.02 (0.01-0.08) K/mm3 Sodium 140 (136-145) mEq/L Potassium 4.0 (3.5-5.1) mEq/L Chloride 106 (98-107) mEq/L Carbon Dioxide 23 (21-32) mEq/L Anion Gap 15.0 (5-15) BUN 16 (7-18) mg/dL Creatinine 1.1 (0.7-1.3) mg/dL Est Cr Clr Drug Dosing 70.82 mL/min Estimated GFR (MDRD) > 60 (>60) mL/min BUN/Creatinine Ratio 14.5 (14-18) Glucose 107 H (74-106) mg/dL POC Glucose 103 (70-105) mg/dL Calcium 8.0 L (8.5-10.1) mg/dL Magnesium 2.0 (1.8-2.4) mg/dl C-Reactive Protein 28.3 H* (<1.0) mg/dL [place] Results Last 24 Hours: Microbiology 03/09/18 20:02 Urine Culture - Final Urine, Clean Catch Escherichia Coli 03/09/18 18:50 Aerobic Blood Culture - Preliminary Blood - Venous - Lab Draw NO GROWTH AFTER 1 DAY Anaerobic Blood Culture - Preliminary NO GROWTH AFTER 1 DAY 03/09/18 18:40 Aerobic Blood Culture - Preliminary Blood - Venous NO GROWTH AFTER 1 DAY Anaerobic Blood Culture - Preliminary NO GROWTH AFTER 1 DAY 03/09/18 19:15 Quick Strep Confirmation Culture - Preliminary Throat Group A Streptococcus Rapid Screen - Final NEGATIVE STREP A SCREEN Med Orders - Current: Current Medications Acetaminophen (Tylenol) 650 mg PO Q4H PRN PRN Reason: Pain (Mild 1-3)/fever Acetaminophen/Butalbital/Caffeine (Fioricet 325-50-40 Mg) 2 tab PO Q6H PRN PRN Reason: Headache Last Admin: 03/10/18 00:11 Dose: 2 tab Hydrocodone Bitart/Acetaminophen ([place] 325-5 Mg) 1 tab PO Q4H PRN PRN Reason: Pain (moderate 4-6) Last Admin: 03/11/18 01:03 Dose: 1 tab Albuterol/Ipratropium (Duoneb 3.0-0.5 Mg/3 Ml) 3 ml NEB Q4H PRN PRN Reason: Shortness Of Breath/wheezing Aspirin (Halfprin) 81 mg PO DAILY [facility] Last Admin: 03/11/18 08:53 Dose: 81 mg Bisacodyl (Dulcolax) 5 mg PO DAILY PRN PRN Reason: Constipation Clonazepam (Klonopin) 1 mg PO DAILY [facility] Last Admin: 03/11/18 08:53 Dose: 1 mg Docusate Sodium (Colace) 100 mg PO BID PRN PRN Reason: Constipation Fenofibrate (Tricor) 145 mg PO DAILY [facility] Last Admin: 03/11/18 08:53 Dose: 145 mg Fish Oil (Fish Oil) 1 gm PO DAILY [facility] Last Admin: 03/11/18 08:52 Dose: 1 gm Flunisolide (Nasalide Nasal [place]) 15 ml NASBOTH BID [facility] Last Admin: 03/11/18 08:54 Dose: 1 spray Guaifenesin/Phenylephrine HCl (Robitussin Dm) 10 ml PO TID@0700,1400,2100 PRN PRN Reason: Cough Hydralazine HCl (Apresoline) 20 mg IVPUSH Q4H PRN PRN Reason: Hypertension Hydromorphone HCl (Dilaudid) 0.5 mg IVPUSH Q2H PRN PRN Reason: Pain (severe 7-10) Last Admin: 03/10/18 18:23 Dose: 0.5 mg Promethazine HCl 12.5 mg/ (Sodium Chloride) 50.5 mls @ 100 mls/hr IV Q6H PRN PRN Reason: Nausea/Vomiting Sodium Chloride (Normal Saline) 1,000 mls @ 125 mls/hr IV ASDIRECTED [facility] Last Admin: 03/10/18 22:45 Dose: 125 mls/hr Piperacillin Sod/Tazobactam (Sod 4.5 gm/ Sodium Chloride) 100 mls @ 25 mls/hr IV Q8H [facility] Last Admin: 03/11/18 07:16 Dose: 25 mls/hr Levofloxacin/Dextrose 500 mg/ (Premix) 100 mls @ 100 mls/hr IV Q24H [facility] Last Admin: 03/10/18 21:42 Dose: 100 mls/hr Insulin Human Lispro (Humalog) 0 unit SUBCUT QIDACANDBED [facility]; Protocol Last Admin: 03/11/18 07:16 Dose: Not Given Lisinopril (Prinivil) 10 mg PO DAILY [facility] Last Admin: 03/11/18 08:53 Dose: 10 mg Loratadine (Claritin) 10 mg PO BEDTIME [facility] Last Admin: 03/10/18 21:48 Dose: 10 mg Lorazepam (Ativan) 2 mg IVPUSH Q4H PRN PRN Reason: Seizures Lorazepam (Ativan) 1 mg IV Q6H PRN PRN Reason: Anxiety Magnesium Sulfate (Pharmacy To Dose - Magnesium Replacement) 0 dose .XX ASDIRECTED PRN PRN Reason: RX TO WATCH MAG LEVEL Metoprolol Tartrate (Lopressor) 5 mg IVPUSH Q4H PRN PRN Reason: Tachycardia Nicotine (Habitrol) 21 mg TRDERM DAILY [facility] Last Admin: 03/11/18 08:54 Dose: Not Given Ondansetron HCl (Zofran) 4 mg IV Q6H PRN PRN Reason: Nausea/Vomiting Last Admin: 03/10/18 06:48 Dose: 4 mg Oxymetazoline HCl (Afrin Original 0.05% Nasal [place]) 1 - 2 ml BIGG Q12HR PRN PRN Reason: Congestion Last Admin: 03/10/18 15:40 Dose: 1 spray Pantoprazole Sodium (Protonix) 40 mg PO ACBREAKFAST [facility] Last Admin: 03/11/18 07:16 Dose: 40 mg Phenytoin Sodium (Phenytoin) 100 mg PO DAILY [facility] Last Admin: 03/11/18 08:53 Dose: 100 mg Polyethylene Glycol (Miralax) 17 gm PO DAILY PRN PRN Reason: Constipation Potassium Chloride (Pharmacy To Dose - Potassium Replacement) 0 dose .XX ASDIRECTED PRN PRN Reason: RX TO WATCH K LEVELS Rosuvastatin Calcium (Crestor) 10 mg PO DAILY [facility] Last Admin: 03/11/18 08:53 Dose: 10 mg Saccharomyces Boulardii (Florastor) 250 mg PO DAILY [facility] Last Admin: 03/11/18 08:52 Dose: 250 mg Senna/Docusate Sodium (Senna Plus) 1 tab PO BID PRN PRN Reason: Constipation Sodium Chloride (Saline Flush) 10 ml FLUSH ASDIRECTED PRN PRN Reason: Keep Vein Open Last Admin: 03/09/18 18:55 Dose: 10 ml Temazepam (Restoril) 15 mg PO BEDTIME PRN PRN Reason: Sleep Last Admin: 03/10/18 00:12 Dose: 15 mg Discontinued Medications Acetaminophen (Tylenol) Confirm Administered Dose 975 mg .ROUTE .STK-MED ONE Stop: 03/09/18 20:59 Last Admin: 03/09/18 22:59 Dose: Not Given Acetaminophen (Tylenol) 975 mg PO NOW ONE Stop: 03/09/18 21:02 Last Admin: 03/09/18 21:02 Dose: 975 mg Albuterol (Proventil Neb Soln) 2.5 mg NEB ONETIME ONE Stop: 03/09/18 18:14 Last Admin: 03/09/18 18:29 Dose: 2.5 mg Diatrizoate Meglum/Diatrizoate Sod (Gastrografin 37%) 120 ml PO ONETIME ONE Stop: 03/10/18 08:15 Last Admin: 03/10/18 08:47 Dose: 90 ml Hydromorphone HCl (Dilaudid) 0.5 mg IVPUSH ONETIME ONE Stop: 03/09/18 18:15 Last Admin: 03/09/18 19:23 Dose: 0.5 mg Hydromorphone HCl (Dilaudid) 0.5 mg IVPUSH ONETIME ONE Stop: 03/09/18 21:39 Last Admin: 03/09/18 21:46 Dose: 0.5 mg Hydromorphone HCl (Dilaudid) 0.5 mg IVPUSH Q2H PRN PRN Reason: Pain (severe 7-10) Sodium Chloride (Normal Saline) 1,000 mls @ 999 mls/hr IV ONETIME ONE Stop: 03/09/18 19:13 Last Admin: 03/09/18 18:50 Dose: 999 mls/hr Sodium Chloride (Normal Saline) 1,000 mls @ 999 mls/hr IV ONETIME ONE Stop: 03/09/18 19:16 Last Admin: 03/09/18 19:56 Dose: 999 mls/hr Levofloxacin/Dextrose 750 mg/ (Premix) 150 mls @ 100 mls/hr IV ONETIME ONE Stop: 03/09/18 22:14 Last Admin: 03/09/18 21:02 Dose: 100 mls/hr Levofloxacin/Dextrose 500 mg/ (Premix) 100 mls @ 100 mls/hr IV Q24H [facility] Last Admin: 03/10/18 09:44 Dose: Not Given Piperacillin Sod/Tazobactam (Sod 4.5 gm/ Sodium Chloride) 100 mls @ 200 mls/hr IV ONETIME ONE Stop: 03/09/18 22:44 Last Admin: 03/09/18 22:50 Dose: 200 mls/hr Magnesium Sulfate 4 gm/ Premix 100 mls @ 25 mls/hr IV ONETIME ONE Stop: 03/10/18 14:29 Last Admin: 03/10/18 11:14 Dose: 25 mls/hr Insulin Human Lispro (Humalog) 0 unit SUBCUT QIDACANDBED [facility]; Protocol Last Admin: 03/10/18 12:24 Dose: Not Given Iopamidol (Isovue-300 (61%)) 150 ml IVPUSH ONETIME ONE Stop: 03/10/18 08:15 Last Admin: 03/10/18 08:48 Dose: 150 ml Ketorolac Tromethamine (Toradol) 30 mg IVPUSH ONETIME ONE Stop: 03/09/18 18:14 Last Admin: 03/09/18 18:53 Dose: 30 mg Miscellaneous Information (Remove Patch) 0 ea TRDERM DAILY [facility] Last Admin: 03/10/18 08:26 Dose: Not Given Non-Formulary Medication (Krill Oil [Krill Oil]) 1 tab PO DAILY [facility] Phenytoin Sodium (Phenytoin) 300 mg PO DAILY [facility] Potassium Chloride (Klor-Con M20) 40 meq PO Q4H [facility] Stop: 03/10/18 02:01 Last Admin: 03/10/18 02:00 Dose: Not Given Sodium Chloride (Saline Flush) 10 ml FLUSH ONETIME PRN PRN Reason: IV FLUSH Stop: 03/10/18 18:00 Last Admin: 03/10/18 08:48 Dose: 10 ml - Exam General: Alert, Oriented, Cooperative, No Acute Distress HEENT: Pupils Equal, Pupils Reactive, EOMI, Mucous Membr. Moist/[place] Lungs: Clear to Auscultation, Normal Respiratory Effort Cardiovascular: Regular Rate, Regular Rhythm GI/Abdominal Exam: Normal Bowel Sounds, Soft, Non-Tender, No Organomegaly, No Distention, No Abnormal Bruit (Male) Exam: Deferred Back Exam: Normal Inspection, Decreased Range of Motion Extremities: Normal Inspection, Normal Range of Motion, Non-Tender, No Pedal Edema, Normal Capillary Refill Skin: Warm, Dry, Intact Neurological: No New Focal Deficit Psy/Mental Status: Alert, Normal Affect, Normal Mood - Problem List Review Problem List Initiated/Reviewed/Updated: Yes - My Orders Last 24 Hours: My Active Orders 03/10/18 09:00 Aspirin [Halfprin] 81 mg PO DAILY Fenofibrate Nanocrystallized [Tricor] 145 mg PO DAILY Fish Oil/[place]-3 Fatty Acids [Fish Oil] 1 gm PO DAILY Lisinopril [Prinivil] 10 mg PO DAILY Phenytoin 100 mg PO DAILY Rosuvastatin [Crestor] 10 mg PO DAILY Saccharomyces Boulardii [Florastor] 250 mg PO DAILY 03/10/18 12:24 Communication Order [RC] QID Insulin Lispro [HumaLOG] See Protocol SUBCUT QIDACANDBED 03/10/18 18:00 Nicotine [Habitrol] 21 mg TRDERM DAILY 03/10/18 21:00 Flunisolide [Nasalide Nasal [place]] 15 ml NASBOTH BID Levofloxacin/Dextrose 5%-Water [Levaquin in D5W 500 MG/100 ML] 500 mg Premix Bag 1 bag IV Q24H Loratadine [Claritin] 10 mg PO BEDTIME 03/12/18 05:11 BASIC METABOLIC PANEL,BMP [CHEM] AM C-REACTIVE PROTEIN [CHEM] AM CBC WITH AUTO DIFF [HEME] AM MAGNESIUM [CHEM] AM 03/13/18 05:11 BASIC METABOLIC PANEL,BMP [CHEM] AM C-REACTIVE PROTEIN [CHEM] AM CBC WITH AUTO DIFF [HEME] AM MAGNESIUM [CHEM] AM 03/14/18 05:11 BASIC METABOLIC PANEL,BMP [CHEM] AM C-REACTIVE PROTEIN [CHEM] AM CBC WITH AUTO DIFF [HEME] AM MAGNESIUM [CHEM] AM - Plan Plan:: Assessment/Plan: Acute: Pyelonephritis - 2/2 E. coli - Risk Factors: Poorly controlled DM1 - A1C 6.8 and BS 121 - Abdominal/Pelvis CT scan-nothing acute seen - IV Levaquin and Zosyn due to immuno-suppressed state - Blood Cx x2-negative - UA Cx shows E. coli Bronchitis, Improved - Smokes cigarettes for 40 years now - CXR no obvious infiltrates - Productive cough and shortness of breath - Decongestant and Expectorant - Sputum Cx- pending - Strep Pneumonia Ag--likely negative since rapid strep is negative - Mycoplasma-negative URI/Sinusitis, Improved - Facial Tenderness - Facial CT scan shows chronic sinusitis - Nares are congested and narrowed - Nasal spray and dencongestant Resolved: S/p Renal Insufficiency, Improved - Unknown baseline S/p Fever - Documented tem of 38.6 C - 2/2 Above - WBC 13.93 and CRP 6.4 - Treatment as above Chronic: HTN HLD CAD S/p Stent Placement DM2 on Insulin, BS controlled GERD Seizure Disorder Chronic Pain Syndrome Nicotine Use Disorder Plan: He remains clinically stable Continue current treatment Routine AM Labs Discontinue PT/OT SW/CM brennan d/c planning Encourage to AM as much as he can tolerate Continue to use FV/IS Code status:1
[2018-03-11] MEDS: Levofloxacin/Dextrose 5%-Water 500 MG in Premix Bag 1 BAG IV SCH (21:32)
[2018-03-11] MEDS: Loratadine 10 MG Tab PO SCH (21:33)
[2018-03-11] MEDS: HYDROmorphone 0.5 MG/0.5 ML Syringe IVPUSH PRN (22:50)
[2018-03-12] MEDS: HYDROmorphone 0.5 MG/0.5 ML Syringe IVPUSH PRN ×2 (04:56→12:23)
[2018-03-12] MEDS: Piperacillin/Tazobactam 4.5 GM in Sodium Chloride 0.9% 100 ML IV SCH ×3 (06:56→23:11)
[2018-03-12] MEDS: Insulin Lispro 100 Unit/ML 3 ML KwikPen SUBCUT SCH ×4 (06:56→21:49)
[2018-03-12] MEDS: Pantoprazole 40 MG Tab.CR PO SCH (06:56)
[2018-03-12] MEDS: Saccharomyces Boulardii (Probiotic) 250 MG Cap PO SCH (09:11)
[2018-03-12] MEDS: ClonazePAM 1 MG Tab PO SCH (09:11)
[2018-03-12] MEDS: Lisinopril 10 MG Tab PO SCH (09:11)
[2018-03-12] MEDS: Fenofibrate Nanocrystallized 145 MG Tab PO SCH (09:11)
[2018-03-12] MEDS: Rosuvastatin 10 MG Tab PO SCH (09:11)
[2018-03-12] MEDS: Phenytoin 100 MG Cap.ER PO SCH (09:11)
[2018-03-12] MEDS: Aspirin 81 MG Tab.EC PO SCH (09:11)
[2018-03-12] MEDS: Fish Oil/Omega-3 Fatty Acids 1 Gm Cap PO SCH (09:11)
[2018-03-12] MEDS: Nicotine 21 MG/24 Hr Patch TRDERM SCH (09:12)
--- NOTE | 2018-03-12 09:59 | PCM.PN ---
- General Info Date of Service: 03/12/18 Admission Dx/Problem (Free Text): Admission Diagnosis/Problem Admission Diagnosis/Problem Pyelonephritis Subjective Update: Follow Up Functional Status: Reports: Pain Controlled, Tolerating Diet, Ambulating, Urinating. Denies: New Symptoms - Review of Systems General: Denies: Fever, Weakness, Fatigue, Malaise, Chills HEENT: Reports: No Symptoms Pulmonary: Denies: Shortness of Breath, Pleuritic Chest Pain, Cough, Sputum, Wheezing Cardiovascular: Denies: Chest Pain, Dyspnea on Exertion, Lightheadedness Gastrointestinal: Denies: Abdominal Pain, Nausea, Vomiting Genitourinary: Reports: No Symptoms Musculoskeletal: Reports: No Symptoms Skin: Denies: Cyanosis, Mottled, Pallor, Diaphoresis, Rash Neurological: Reports: Weakness, Gait Disturbance. Denies: Confusion, Difficulty Walking Psychiatric: Denies: Confusion, Depression, Anxiety, Agitation, Hallucinations - Patient Data Vitals - Most Recent: Last Vital Signs Temp 37.7 C 03/12/18 08:57 Pulse 61 03/12/18 08:57 Resp 16 03/12/18 08:57 BP 143/74 H 03/12/18 09:11 Pulse Ox 96 03/12/18 08:57 Weight - Most Recent: 97.114 kg I&O - Last 24 Hours: Intake & Output 03/11/18 03/12/18 03/12/18 22:59 06:59 14:59 Intake Total 1528 1000 Output Total 250 1300 Balance 1278 -300 Lab Results Last 24 Hours: Laboratory Results - last 24 hr 03/11/18 03/11/18 03/11/18 Range/Units 06:01 11:09 17:00 WBC (4.23-9.07) K/mm3 RBC (4.63-6.08) M/mm3 Hgb (13.7-17.5) gm/L Hct (40.1-51.0) % MCV (79.0-92.2) fl MCH (25.7-32.2) pg MCHC (32.2-35.5) g/dl RDW Std Deviation (35.1-43.9) fL Plt Count (163-337) K/mm3 MPV (9.4-12.3) fl Neut % (Auto) (34.0-67.9) % Lymph % (Auto) (21.8-53.1) % [place] % (Auto) (5.3-12.2) % Eos % (Auto) (0.8-7.0) Baso % (Auto) (0.1-1.2) % Neut # (Auto) (1.78-5.38) K/mm3 Lymph # (Auto) (1.32-3.57) K/mm3 [place] # (Auto) (0.30-0.82) K/mm3 Eos # (Auto) (0.04-0.54) K/mm3 Baso # (Auto) (0.01-0.08) K/mm3 Sodium (136-145) mEq/L Potassium (3.5-5.1) mEq/L Chloride (98-107) mEq/L Carbon Dioxide (21-32) mEq/L Anion Gap (5-15) BUN (7-18) mg/dL Creatinine (0.7-1.3) mg/dL Est Cr Clr Drug Dosing mL/min Estimated GFR (MDRD) (>60) mL/min BUN/Creatinine Ratio (14-18) Glucose (74-106) mg/dL POC Glucose 154 H 190 H (70-105) mg/dL Calcium (8.5-10.1) mg/dL Magnesium (1.8-2.4) mg/dl C-Reactive Protein (<1.0) mg/dL Mycoplasma pneumon IgM Negative (NEGATIVE) 03/11/18 03/12/18 03/12/18 Range/Units 20:55 06:30 06:30 WBC 8.94 (4.23-9.07) K/mm3 RBC 3.70 L (4.63-6.08) M/mm3 Hgb 11.5 L (13.7-17.5) gm/L Hct 34.1 L (40.1-51.0) % MCV 92.2 (79.0-92.2) fl MCH 31.1 (25.7-32.2) pg MCHC 33.7 (32.2-35.5) g/dl RDW Std Deviation 43.6 (35.1-43.9) fL Plt Count 228 (163-337) K/mm3 MPV 9.0 L (9.4-12.3) fl Neut % (Auto) 69.9 H (34.0-67.9) % Lymph % (Auto) 18.2 L (21.8-53.1) % [place] % (Auto) 8.3 (5.3-12.2) % Eos % (Auto) 3.1 (0.8-7.0) Baso % (Auto) 0.3 (0.1-1.2) % Neut # (Auto) 6.24 H (1.78-5.38) K/mm3 Lymph # (Auto) 1.63 (1.32-3.57) K/mm3 [place] # (Auto) 0.74 (0.30-0.82) K/mm3 Eos # (Auto) 0.28 (0.04-0.54) K/mm3 Baso # (Auto) 0.03 (0.01-0.08) K/mm3 Sodium 141 (136-145) mEq/L Potassium 4.1 (3.5-5.1) mEq/L Chloride 108 H (98-107) mEq/L Carbon Dioxide 22 (21-32) mEq/L Anion Gap 15.1 H (5-15) BUN 16 (7-18) mg/dL Creatinine 1.0 (0.7-1.3) mg/dL Est Cr Clr Drug Dosing 77.90 mL/min Estimated GFR (MDRD) > 60 (>60) mL/min BUN/Creatinine Ratio 16.0 (14-18) Glucose 119 H (74-106) mg/dL POC Glucose 120 H (70-105) mg/dL Calcium 8.6 (8.5-10.1) mg/dL Magnesium 1.6 L (1.8-2.4) mg/dl C-Reactive Protein 17.3 H* (<1.0) mg/dL Mycoplasma pneumon IgM (NEGATIVE) 03/12/18 Range/Units 06:54 WBC (4.23-9.07) K/mm3 RBC (4.63-6.08) M/mm3 Hgb (13.7-17.5) gm/L Hct (40.1-51.0) % MCV (79.0-92.2) fl MCH (25.7-32.2) pg MCHC (32.2-35.5) g/dl RDW Std Deviation (35.1-43.9) fL Plt Count (163-337) K/mm3 MPV (9.4-12.3) fl Neut % (Auto) (34.0-67.9) % Lymph % (Auto) (21.8-53.1) % [place] % (Auto) (5.3-12.2) % Eos % (Auto) (0.8-7.0) Baso % (Auto) (0.1-1.2) % Neut # (Auto) (1.78-5.38) K/mm3 Lymph # (Auto) (1.32-3.57) K/mm3 [place] # (Auto) (0.30-0.82) K/mm3 Eos # (Auto) (0.04-0.54) K/mm3 Baso # (Auto) (0.01-0.08) K/mm3 Sodium (136-145) mEq/L Potassium (3.5-5.1) mEq/L Chloride (98-107) mEq/L Carbon Dioxide (21-32) mEq/L Anion Gap (5-15) BUN (7-18) mg/dL Creatinine (0.7-1.3) mg/dL Est Cr Clr Drug Dosing mL/min Estimated GFR (MDRD) (>60) mL/min BUN/Creatinine Ratio (14-18) Glucose (74-106) mg/dL POC Glucose 106 H (70-105) mg/dL Calcium (8.5-10.1) mg/dL Magnesium (1.8-2.4) mg/dl C-Reactive Protein (<1.0) mg/dL Mycoplasma pneumon IgM (NEGATIVE) [place] Results Last 24 Hours: Microbiology 03/09/18 18:40 Aerobic Blood Culture - Preliminary Blood - Venous NO GROWTH AFTER 2 DAYS Anaerobic Blood Culture - Preliminary NO GROWTH AFTER 2 DAYS 03/09/18 18:50 Aerobic Blood Culture - Preliminary Blood - Venous - Lab Draw NO GROWTH AFTER 2 DAYS Anaerobic Blood Culture - Preliminary NO GROWTH AFTER 2 DAYS 03/09/18 19:15 Quick Strep Confirmation Culture - Final Throat NEGATIVE FOR BETA STREP Group A Streptococcus Rapid Screen - Final NEGATIVE STREP A SCREEN 03/09/18 20:02 Urine Culture - Final Urine, Clean Catch Escherichia Coli Med Orders - Current: Current Medications Acetaminophen (Tylenol) 650 mg PO Q4H PRN PRN Reason: Pain (Mild 1-3)/fever Acetaminophen/Butalbital/Caffeine (Fioricet 325-50-40 Mg) 2 tab PO Q6H PRN PRN Reason: Headache Last Admin: 03/10/18 00:11 Dose: 2 tab Hydrocodone Bitart/Acetaminophen ([place] 325-5 Mg) 1 tab PO Q4H PRN PRN Reason: Pain (moderate 4-6) Last Admin: 03/11/18 21:33 Dose: 1 tab Albuterol/Ipratropium (Duoneb 3.0-0.5 Mg/3 Ml) 3 ml NEB Q4H PRN PRN Reason: Shortness Of Breath/wheezing Aspirin (Halfprin) 81 mg PO DAILY [facility] Last Admin: 03/12/18 09:11 Dose: 81 mg Bisacodyl (Dulcolax) 5 mg PO DAILY PRN PRN Reason: Constipation Clonazepam (Klonopin) 1 mg PO DAILY [facility] Last Admin: 03/12/18 09:11 Dose: 1 mg Docusate Sodium (Colace) 100 mg PO BID PRN PRN Reason: Constipation Fenofibrate (Tricor) 145 mg PO DAILY [facility] Last Admin: 03/12/18 09:11 Dose: 145 mg Fish Oil (Fish Oil) 1 gm PO DAILY [facility] Last Admin: 03/12/18 09:11 Dose: 1 gm Flunisolide (Nasalide Nasal [place]) 15 ml NASBOTH BID [facility] Last Admin: 03/12/18 09:12 Dose: Not Given Guaifenesin/Phenylephrine HCl (Robitussin Dm) 10 ml PO TID@0700,1400,2100 PRN PRN Reason: Cough Hydralazine HCl (Apresoline) 20 mg IVPUSH Q4H PRN PRN Reason: Hypertension Hydromorphone HCl (Dilaudid) 0.5 mg IVPUSH Q2H PRN PRN Reason: Pain (severe 7-10) Last Admin: 03/12/18 04:56 Dose: 0.5 mg Promethazine HCl 12.5 mg/ (Sodium Chloride) 50.5 mls @ 100 mls/hr IV Q6H PRN PRN Reason: Nausea/Vomiting Piperacillin Sod/Tazobactam (Sod 4.5 gm/ Sodium Chloride) 100 mls @ 25 mls/hr IV Q8H [facility] Last Admin: 03/12/18 06:56 Dose: 25 mls/hr Levofloxacin/Dextrose 500 mg/ (Premix) 100 mls @ 100 mls/hr IV Q24H [facility] Last Admin: 03/11/18 21:32 Dose: 100 mls/hr Insulin Human Lispro (Humalog) 0 unit SUBCUT QIDACANDBED [facility]; Protocol Last Admin: 03/12/18 06:56 Dose: Not Given Lisinopril (Prinivil) 10 mg PO DAILY [facility] Last Admin: 03/12/18 09:11 Dose: 10 mg Loratadine (Claritin) 10 mg PO BEDTIME [facility] Last Admin: 03/11/18 21:33 Dose: 10 mg Lorazepam (Ativan) 2 mg IVPUSH Q4H PRN PRN Reason: Seizures Lorazepam (Ativan) 1 mg IV Q6H PRN PRN Reason: Anxiety Magnesium Sulfate (Pharmacy To Dose - Magnesium Replacement) 0 dose .XX ASDIRECTED PRN PRN Reason: RX TO WATCH MAG LEVEL Metoprolol Tartrate (Lopressor) 5 mg IVPUSH Q4H PRN PRN Reason: Tachycardia Nicotine (Habitrol) 21 mg TRDERM DAILY [facility] Last Admin: 03/12/18 09:12 Dose: Not Given Ondansetron HCl (Zofran) 4 mg IV Q6H PRN PRN Reason: Nausea/Vomiting Last Admin: 03/10/18 06:48 Dose: 4 mg Oxymetazoline HCl (Afrin Original 0.05% Nasal [place]) 1 - 2 ml BIGG Q12HR PRN PRN Reason: Congestion Last Admin: 03/10/18 15:40 Dose: 1 spray Pantoprazole Sodium (Protonix) 40 mg PO ACBREAKFAST [facility] Last Admin: 03/12/18 06:56 Dose: 40 mg Phenytoin Sodium (Phenytoin) 100 mg PO DAILY [facility] Last Admin: 03/12/18 09:11 Dose: 100 mg Polyethylene Glycol (Miralax) 17 gm PO DAILY PRN PRN Reason: Constipation Potassium Chloride (Pharmacy To Dose - Potassium Replacement) 0 dose .XX ASDIRECTED PRN PRN Reason: RX TO WATCH K LEVELS Rosuvastatin Calcium (Crestor) 10 mg PO DAILY [facility] Last Admin: 03/12/18 09:11 Dose: 10 mg Saccharomyces Boulardii (Florastor) 250 mg PO DAILY [facility] Last Admin: 03/12/18 09:11 Dose: 250 mg Senna/Docusate Sodium (Senna Plus) 1 tab PO BID PRN PRN Reason: Constipation Sodium Chloride (Saline Flush) 10 ml FLUSH ASDIRECTED PRN PRN Reason: Keep Vein Open Last Admin: 03/09/18 18:55 Dose: 10 ml Temazepam (Restoril) 15 mg PO BEDTIME PRN PRN Reason: Sleep Last Admin: 03/10/18 00:12 Dose: 15 mg Discontinued Medications Acetaminophen (Tylenol) Confirm Administered Dose 975 mg .ROUTE .STK-MED ONE Stop: 03/09/18 20:59 Last Admin: 03/09/18 22:59 Dose: Not Given Acetaminophen (Tylenol) 975 mg PO NOW ONE Stop: 03/09/18 21:02 Last Admin: 03/09/18 21:02 Dose: 975 mg Albuterol (Proventil Neb Soln) 2.5 mg NEB ONETIME ONE Stop: 03/09/18 18:14 Last Admin: 03/09/18 18:29 Dose: 2.5 mg Diatrizoate Meglum/Diatrizoate Sod (Gastrografin 37%) 120 ml PO ONETIME ONE Stop: 03/10/18 08:15 Last Admin: 03/10/18 08:47 Dose: 90 ml Hydromorphone HCl (Dilaudid) 0.5 mg IVPUSH ONETIME ONE Stop: 03/09/18 18:15 Last Admin: 03/09/18 19:23 Dose: 0.5 mg Hydromorphone HCl (Dilaudid) 0.5 mg IVPUSH ONETIME ONE Stop: 03/09/18 21:39 Last Admin: 03/09/18 21:46 Dose: 0.5 mg Hydromorphone HCl (Dilaudid) 0.5 mg IVPUSH Q2H PRN PRN Reason: Pain (severe 7-10) Sodium Chloride (Normal Saline) 1,000 mls @ 999 mls/hr IV ONETIME ONE Stop: 03/09/18 19:13 Last Admin: 03/09/18 18:50 Dose: 999 mls/hr Sodium Chloride (Normal Saline) 1,000 mls @ 999 mls/hr IV ONETIME ONE Stop: 03/09/18 19:16 Last Admin: 03/09/18 19:56 Dose: 999 mls/hr Levofloxacin/Dextrose 750 mg/ (Premix) 150 mls @ 100 mls/hr IV ONETIME ONE Stop: 03/09/18 22:14 Last Admin: 03/09/18 21:02 Dose: 100 mls/hr Sodium Chloride (Normal Saline) 1,000 mls @ 125 mls/hr IV ASDIRECTED [facility] Last Admin: 03/10/18 22:45 Dose: 125 mls/hr Levofloxacin/Dextrose 500 mg/ (Premix) 100 mls @ 100 mls/hr IV Q24H [facility] Last Admin: 03/10/18 09:44 Dose: Not Given Piperacillin Sod/Tazobactam (Sod 4.5 gm/ Sodium Chloride) 100 mls @ 200 mls/hr IV ONETIME ONE Stop: 03/09/18 22:44 Last Admin: 03/09/18 22:50 Dose: 200 mls/hr Magnesium Sulfate 4 gm/ Premix 100 mls @ 25 mls/hr IV ONETIME ONE Stop: 03/10/18 14:29 Last Admin: 03/10/18 11:14 Dose: 25 mls/hr Insulin Human Lispro (Humalog) 0 unit SUBCUT QIDACANDBED [facility]; Protocol Last Admin: 03/10/18 12:24 Dose: Not Given Iopamidol (Isovue-300 (61%)) 150 ml IVPUSH ONETIME ONE Stop: 03/10/18 08:15 Last Admin: 03/10/18 08:48 Dose: 150 ml Ketorolac Tromethamine (Toradol) 30 mg IVPUSH ONETIME ONE Stop: 03/09/18 18:14 Last Admin: 03/09/18 18:53 Dose: 30 mg Miscellaneous Information (Remove Patch) 0 ea TRDERM DAILY [facility] Last Admin: 03/10/18 08:26 Dose: Not Given Non-Formulary Medication (Krill Oil [Krill Oil]) 1 tab PO DAILY [facility] Phenytoin Sodium (Phenytoin) 300 mg PO DAILY [facility] Potassium Chloride (Klor-Con M20) 40 meq PO Q4H [facility] Stop: 03/10/18 02:01 Last Admin: 03/10/18 02:00 Dose: Not Given Sodium Chloride (Saline Flush) 10 ml FLUSH ONETIME PRN PRN Reason: IV FLUSH Stop: 03/10/18 18:00 Last Admin: 03/10/18 08:48 Dose: 10 ml - Exam General: Alert, Oriented, Cooperative. No: No Acute Distress HEENT: Pupils Equal, Pupils Reactive, EOMI, Mucous Membr. Moist/[place] Neck: Supple, Trachea Midline, No JVD Lungs: Clear to Auscultation, Normal Respiratory Effort Cardiovascular: Regular Rate, Regular Rhythm GI/Abdominal Exam: Normal Bowel Sounds, Soft, Non-Tender, No Organomegaly, No Distention, No Abnormal Bruit, No Mass (Male) Exam: Deferred Back Exam: Normal Inspection, Muscle Spasm, Vertebral Tenderness Extremities: Normal Inspection, No Pedal Edema, Normal Capillary Refill Peripheral Pulses: 2+: Dorsalis Pedis (L), Dorsalis Pedis (R) Skin: Warm, Dry, Intact Neurological: No New Focal Deficit Psy/Mental Status: Alert, Normal Affect, Normal Mood - Problem List Review Problem List Initiated/Reviewed/Updated: Yes - My Orders Last 24 Hours: My Active Orders 03/11/18 10:11 Ambulate [RC] ASDIRECTED 03/13/18 05:11 BASIC METABOLIC PANEL,BMP [CHEM] AM C-REACTIVE PROTEIN [CHEM] AM CBC WITH AUTO DIFF [HEME] AM MAGNESIUM [CHEM] AM 03/14/18 05:11 BASIC METABOLIC PANEL,BMP [CHEM] AM C-REACTIVE PROTEIN [CHEM] AM CBC WITH AUTO DIFF [HEME] AM MAGNESIUM [CHEM] AM - Plan Plan:: Assessment/Plan: Acute: Pyelonephritis, Continues to Improve - 2/2 E. coli - Risk Factors: Poorly controlled DM1 - A1C 6.8 and BS 121 - Abdominal/Pelvis CT scan-nothing acute seen - IV Levaquin and Zosyn due to immuno-suppressed state - Blood Cx x2-negative - UA Cx shows E. coli Bronchitis, Continues to Improve - Smokes cigarettes for 40 years now - CXR no obvious infiltrates - Productive cough and shortness of breath - Decongestant and Expectorant - Sputum Cx- pending - Strep Pneumonia Ag--likely negative since rapid strep is negative - Mycoplasma-negative Resolved: S/p Renal Insufficiency, Improved - Unknown baseline S/p Fever - Documented tem of 38.6 C - 2/2 Above - WBC 13.93 and CRP 6.4 - Treatment as above S/p URI/Sinusitis - No more complaints - Facial Tenderness - Facial CT scan shows chronic sinusitis - Nares are congested and narrowed - Nasal spray and decongestant Chronic: HTN HLD CAD S/p Stent Placement DM2 on Insulin, BS controlled GERD Seizure Disorder Chronic Pain Syndrome Nicotine Use Disorder Plan: He remains clinically stable Continue current treatment Routine AM Labs Discontinue PT/OT SW/CM brennan d/c planning Encourage to AM as much as he can tolerate Continue to use FV/IS Code status:1 Possible discharge in AM. His CRP is still significantly elevated at 17.3; he is battling 3 infections. He would like to leave at 0700 AM (sharp) tomorrow.
[2018-03-12] MEDS ORDERED: Magnesium Sulfate/Water 2 GM in Premix Bag 1 BAG IV ONE (10:30)
[2018-03-12] MEDS: Loratadine 10 MG Tab PO SCH (21:47)
[2018-03-12] MEDS: Acetaminophen/HYDROcodone 325-5 MG Tab PO PRN (21:47)
[2018-03-12] MEDS: Levofloxacin/Dextrose 5%-Water 500 MG in Premix Bag 1 BAG IV SCH (21:48)
[2018-03-13] MEDS: Pantoprazole 40 MG Tab.CR PO SCH (06:31)
[2018-03-13] MEDS: Piperacillin/Tazobactam 4.5 GM in Sodium Chloride 0.9% 100 ML IV SCH (06:45)
[2018-03-13] MEDS: Insulin Lispro 100 Unit/ML 3 ML KwikPen SUBCUT SCH (06:45)
[2018-03-13] MEDS ORDERED: Levofloxacin 250 MG Tab PO ONE (07:33)
--- NOTE | 2018-03-13 09:03 | PCM.DCSUM1 ---
Discharge Summary - Hospital Course Brief History: This is s a 57 yo white male with past medical hx/o HTN, HLD, CAD S/p Stent Placement, DM2, GERD, Seizure Disorder, Chronic Pain Syndrome, and Nicotine Use Disorder who comes in for evaluation of febrile illness associated with productive cough, shortness of breath sand headache. He reports previous hx/o it in the past since he travelled to [place] 10 years ago. He denies recent traveled outside the country and no sick contract. His initial work up in the emergency department shows a CBC remarkable for WBC of 13.93, IBC of 4.33, hematocrit of 39.4, RDW 45.1, MPV of 8.8, neutrophils of 84%, lymphocytes of 12%, and monocytes of 1%. His ESR and d-dimer are both within normal limits. His chemistry is remarkable for anion gap of 15.6, BUN of 24, creatinine 1.4, glucose of 121, hemoglobin A1c of 6.8, CRP of 6.4, and lipase of 56. His UA is highly suggestive of UTI. His chest and abdominal x-ray revealed no acute abnormal findings. Patient is being admitted for acute pyelonephritis. He is full code. Diagnosis: Stroke: No Modified Medina Scale: No Symptoms at All Modified [place]ina Scale Score: 0 - Discharge Data Discharge Date: 03/13/18 Discharge Disposition: Home, Self-Care 01 Condition: Good - Discharge Diagnosis/Problem(s) (1) Sinusitis SNOMED Code(s): 35274675 ICD Code: J32.9 - CHRONIC SINUSITIS, UNSPECIFIED Status: Acute (2) Bronchitis SNOMED Code(s): 23590255 ICD Code: J40 - BRONCHITIS, NOT SPECIFIED ACUTE OR CHRONIC Status: Acute (3) Diabetes mellitus SNOMED Code(s): 07155508 ICD Code: E11.9 - TYPE 2 DIABETES MELLITUS WITHOUT COMPLICATIONS Status: Acute Qualifiers: Diabetes mellitus type: type 2 Diabetes mellitus long chain beamer insulin use: with long chain beamer use Diabetes mellitus complication status: with circulatory complication Diabetes mellitus complication detail: with other circulatory complications Qualified Code(s): E11.59 - Type 2 diabetes mellitus with other circulatory complications; Z79.4 - superintendent container terminal (current) use of insulin (4) Pyelonephritis, acute SNOMED Code(s): 67374621 ICD Code: N10 - ACUTE PYELONEPHRITIS Status: Acute - Patient Summary/Data Operative Procedure(s) Performed: None Complications: None Consults: Consultations 03/09/18 21:40 Consult to Case Management [CONS] Routine Consult to Manager Project Management [CONS] Routine OT Evaluation and Treatment [CONS] Routine PT Evaluation and Treatment [CONS] Routine Labs Pending at D/C: None Recommended Follow-up Testing/Procedures: None Planned Operative Procedure(s) after DC: None Hospital Course: The patient was primarily admitted for pyelonephritis but additional infectious work up revealed he also had acute sinusitis and bronchitis. He received appropriate intravenous antibiotics, decongestant and expectant to improve his symptoms. His chest x-ray showed no obvious infiltrate but his facial x-ray revealed sinusitis. His Blood cultures were negative but his urine culture grew E. coli. His hospital course was fairly uncomplicated and the rest of his chronic medical illness remained stable during this admission. The patient was stable upon discharge. He was sent home with additional course of oral antibiotic to take. He was advised to comply with discharge instructions. He was further advised to follow up with his PCP [place] after discharge. The patient and his family at bedside expressed understanding and in agreement with the plans as discussed above. All questions were answered. - Patient Instructions Diet: Heart Healthy Diet, Usual Diet as Tolerated, Diabetic Diet Activity: As Tolerated Driving: May Drive Today Showering/Bathing: May Shower Notify Provider of: Fever, Increased Pain, Nausea and/or Vomiting Other/Special Instructions: - Please take all new medications as directed. - Resume all medications as directed. - Continue all rotuine activities as tolerated. - Call or follow up with your PCP for any questions for any questions or cocncers after discharge. - Follow up with you PCP in 1 week. - Come back or seek immediate care should your symptoms persist or get worse - Discharge Plan *PRESCRIPTION DRUG MONITORING PROGRAM REVIEWED*: Not Applicable *COPY OF PRESCRIPTION DRUG MONITORING REPORT IN PATIENT MCKAY: Not Applicable Prescriptions/Med Rec: Levofloxacin [Levaquin] 750 mg PO DAILY #3 tablet Saccharomyces Boulardii [Florastor] 250 mg PO DAILY #3 cap Home Medications: Home Meds Aspirin [Halfprin] 81 mg PO DAILY 03/09/18 [History] ClonazePAM [KlonoPIN] 1 mg PO DAILY 03/09/18 [History] Fenofibrate,Micronized [Fenofibrate] 134 mg PO DAILY 03/09/18 [History] Insuln Asp Prot/Insulin Aspart [NovoLOG Mix 70-30] 1 - 20 units SUBCUT TID 03/09 [History] Krill/Om-3/DHA/EPA/Phospho/Ast [[place]-3 Krill Oil 1,000 mg] 1 tab PO DAILY 03/09 [History] Lisinopril [Prinivil] 10 mg PO DAILY 03/09/18 [History] Pantoprazole [ProTONIX] 40 mg PO DAILY 03/09/18 [History] Phenytoin Sodium Extended [Dilantin] 100 mg PO DAILY 03/09/18 [History] atorvaSTATin [Lipitor] 40 mg PO DAILY 03/09/18 [History] Levofloxacin [Levaquin] 750 mg PO DAILY #3 tablet 03/13/18 [Rx] Saccharomyces Boulardii [Florastor] 250 mg PO DAILY #3 cap 03/13/18 [Rx] Patient Handouts: Sinusitis, Adult, Urinary Tract Infection, Adult, Steps to Quit Smoking Referrals: PCP,Not In Area [Primary Care Provider] - (Please follow-up with your primary care doctor upon arrival back to [place] in approximately 2 weeks. ) - Discharge Summary/Plan Comment DC Time >30 min.: No Discharge Summary/Plan Comment: Discharge to Home - General Info Date of Service: 03/13/18 Admission Dx/Problem (Free Text: Admission Diagnosis/Problem Admission Diagnosis/Problem Pyelonephritis Subjective Update: Follow Up Functional Status: Reports: Pain Controlled, Tolerating Diet, Ambulating, Urinating - Review of Systems General: Denies: Fever, Weakness, Fatigue, Malaise, Chills HEENT: Reports: No Symptoms Pulmonary: Denies: Shortness of Breath, Cough, Sputum Cardiovascular: Denies: Chest Pain, Lightheadedness Gastrointestinal: Denies: Abdominal Pain, Nausea, Vomiting Genitourinary: Reports: No Symptoms Musculoskeletal: Reports: No Symptoms Skin: Denies: Cyanosis, Mottled, Pallor, Diaphoresis, Rash Neurological: Denies: Confusion, Difficulty Walking, Weakness, Gait Disturbance Psychiatric: Denies: Depression, Anxiety, Agitation, Hallucinations Systems Review Comment: No overnight or acute issues. He feels way so much better and he is super ready to go back home to [place]. - Patient Data Vitals - Most Recent: Last Vital Signs Temp 36.9 C 03/13/18 06:17 Pulse 62 03/13/18 06:17 Resp 16 03/13/18 06:17 BP 140/96 H 03/13/18 06:17 Pulse Ox 97 03/13/18 06:17 Weight - Most Recent: 96.303 kg I&O - Last 24 hours: Intake & Output 03/12/18 03/13/18 03/13/18 22:59 06:59 14:59 Intake Total 930 800 Output Total 800 Balance 130 800 Lab Results - Last 24 hrs: Laboratory Results - last 24 hr 03/12/18 03/12/18 03/12/18 Range/Units 11:11 13:30 17:33 WBC (4.23-9.07) K/mm3 RBC (4.63-6.08) M/mm3 Hgb (13.7-17.5) gm/L Hct (40.1-51.0) % MCV (79.0-92.2) fl MCH (25.7-32.2) pg MCHC (32.2-35.5) g/dl RDW Std Deviation (35.1-43.9) fL Plt Count (163-337) K/mm3 MPV (9.4-12.3) fl Neut % (Auto) (34.0-67.9) % Lymph % (Auto) (21.8-53.1) % [place] % (Auto) (5.3-12.2) % Eos % (Auto) (0.8-7.0) Baso % (Auto) (0.1-1.2) % Neut # (Auto) (1.78-5.38) K/mm3 Lymph # (Auto) (1.32-3.57) K/mm3 [place] # (Auto) (0.30-0.82) K/mm3 Eos # (Auto) (0.04-0.54) K/mm3 Baso # (Auto) (0.01-0.08) K/mm3 Sodium (136-145) mEq/L Potassium (3.5-5.1) mEq/L Chloride (98-107) mEq/L Carbon Dioxide (21-32) mEq/L Anion Gap (5-15) BUN (7-18) mg/dL Creatinine (0.7-1.3) mg/dL Est Cr Clr Drug Dosing mL/min Estimated GFR (MDRD) (>60) mL/min BUN/Creatinine Ratio (14-18) Glucose (74-106) mg/dL POC Glucose 121 H 130 H 141 H (70-105) mg/dL Calcium (8.5-10.1) mg/dL Magnesium (1.8-2.4) mg/dl C-Reactive Protein (<1.0) mg/dL 03/12/18 03/13/18 03/13/18 Range/Units 21:05 06:09 06:09 WBC 7.76 (4.23-9.07) K/mm3 RBC 3.80 L (4.63-6.08) M/mm3 Hgb 12.0 L (13.7-17.5) gm/L Hct 34.7 L (40.1-51.0) % MCV 91.3 (79.0-92.2) fl MCH 31.6 (25.7-32.2) pg MCHC 34.6 (32.2-35.5) g/dl RDW Std Deviation 42.0 (35.1-43.9) fL Plt Count 276 (163-337) K/mm3 MPV 8.8 L (9.4-12.3) fl Neut % (Auto) 63.9 (34.0-67.9) % Lymph % (Auto) 21.9 (21.8-53.1) % [place] % (Auto) 8.9 (5.3-12.2) % Eos % (Auto) 4.4 (0.8-7.0) Baso % (Auto) 0.5 (0.1-1.2) % Neut # (Auto) 4.96 (1.78-5.38) K/mm3 Lymph # (Auto) 1.70 (1.32-3.57) K/mm3 [place] # (Auto) 0.69 (0.30-0.82) K/mm3 Eos # (Auto) 0.34 (0.04-0.54) K/mm3 Baso # (Auto) 0.04 (0.01-0.08) K/mm3 Sodium 141 (136-145) mEq/L Potassium 4.2 (3.5-5.1) mEq/L Chloride 108 H (98-107) mEq/L Carbon Dioxide 24 (21-32) mEq/L Anion Gap 13.2 (5-15) BUN 18 (7-18) mg/dL Creatinine 1.2 (0.7-1.3) mg/dL Est Cr Clr Drug Dosing 64.92 mL/min Estimated GFR (MDRD) > 60 (>60) mL/min BUN/Creatinine Ratio 15.0 (14-18) Glucose 119 H (74-106) mg/dL POC Glucose 120 H (70-105) mg/dL Calcium 8.9 (8.5-10.1) mg/dL Magnesium 1.7 L (1.8-2.4) mg/dl C-Reactive Protein 8.6 H* (<1.0) mg/dL 03/13/18 Range/Units 06:09 WBC (4.23-9.07) K/mm3 RBC (4.63-6.08) M/mm3 Hgb (13.7-17.5) gm/L Hct (40.1-51.0) % MCV (79.0-92.2) fl MCH (25.7-32.2) pg MCHC (32.2-35.5) g/dl RDW Std Deviation (35.1-43.9) fL Plt Count (163-337) K/mm3 MPV (9.4-12.3) fl Neut % (Auto) (34.0-67.9) % Lymph % (Auto) (21.8-53.1) % [place] % (Auto) (5.3-12.2) % Eos % (Auto) (0.8-7.0) Baso % (Auto) (0.1-1.2) % Neut # (Auto) (1.78-5.38) K/mm3 Lymph # (Auto) (1.32-3.57) K/mm3 [place] # (Auto) (0.30-0.82) K/mm3 Eos # (Auto) (0.04-0.54) K/mm3 Baso # (Auto) (0.01-0.08) K/mm3 Sodium (136-145) mEq/L Potassium (3.5-5.1) mEq/L Chloride (98-107) mEq/L Carbon Dioxide (21-32) mEq/L Anion Gap (5-15) BUN (7-18) mg/dL Creatinine (0.7-1.3) mg/dL Est Cr Clr Drug Dosing mL/min Estimated GFR (MDRD) (>60) mL/min BUN/Creatinine Ratio (14-18) Glucose (74-106) mg/dL POC Glucose 122 H (70-105) mg/dL Calcium (8.5-10.1) mg/dL Magnesium (1.8-2.4) mg/dl C-Reactive Protein (<1.0) mg/dL MARISSA Results - Last 24 hrs: Microbiology 03/09/18 18:50 Aerobic Blood Culture - Preliminary Blood - Venous - Lab Draw NO GROWTH AFTER 3 DAYS Anaerobic Blood Culture - Preliminary NO GROWTH AFTER 3 DAYS 03/09/18 18:40 Aerobic Blood Culture - Preliminary Blood - Venous NO GROWTH AFTER 3 DAYS Anaerobic Blood Culture - Preliminary NO GROWTH AFTER 3 DAYS Med Orders - Current: Current Medications Acetaminophen (Tylenol) 650 mg PO Q4H PRN PRN Reason: Pain (Mild 1-3)/fever Acetaminophen/Butalbital/Caffeine (Fioricet 325-50-40 Mg) 2 tab PO Q6H PRN PRN Reason: Headache Last Admin: 03/10/18 00:11 Dose: 2 tab Hydrocodone Bitart/Acetaminophen ([place] 325-5 Mg) 1 tab PO Q4H PRN PRN Reason: Pain (moderate 4-6) Last Admin: 03/12/18 21:47 Dose: 1 tab Albuterol/Ipratropium (Duoneb 3.0-0.5 Mg/3 Ml) 3 ml NEB Q4H PRN PRN Reason: Shortness Of Breath/wheezing Aspirin (Halfprin) 81 mg PO DAILY [facility] Last Admin: 03/12/18 09:11 Dose: 81 mg Bisacodyl (Dulcolax) 5 mg PO DAILY PRN PRN Reason: Constipation Clonazepam (Klonopin) 1 mg PO DAILY [facility] Last Admin: 03/12/18 09:11 Dose: 1 mg Docusate Sodium (Colace) 100 mg PO BID PRN PRN Reason: Constipation Fenofibrate (Tricor) 145 mg PO DAILY [facility] Last Admin: 03/12/18 09:11 Dose: 145 mg Fish Oil (Fish Oil) 1 gm PO DAILY [facility] Last Admin: 03/12/18 09:11 Dose: 1 gm Flunisolide (Nasalide Nasal [place]) 15 ml NASBOTH BID [facility] Last Admin: 03/12/18 21:47 Dose: Not Given Guaifenesin/Phenylephrine HCl (Robitussin Dm) 10 ml PO TID@0700,1400,2100 PRN PRN Reason: Cough Hydralazine HCl (Apresoline) 20 mg IVPUSH Q4H PRN PRN Reason: Hypertension Hydromorphone HCl (Dilaudid) 0.5 mg IVPUSH Q2H PRN PRN Reason: Pain (severe 7-10) Last Admin: 03/12/18 12:23 Dose: 0.5 mg Promethazine HCl 12.5 mg/ (Sodium Chloride) 50.5 mls @ 100 mls/hr IV Q6H PRN PRN Reason: Nausea/Vomiting Piperacillin Sod/Tazobactam (Sod 4.5 gm/ Sodium Chloride) 100 mls @ 25 mls/hr IV Q8H [facility] Last Admin: 03/13/18 06:45 Dose: Not Given Levofloxacin/Dextrose 500 mg/ (Premix) 100 mls @ 100 mls/hr IV Q24H [facility] Last Admin: 03/12/18 21:48 Dose: 100 mls/hr Insulin Human Lispro (Humalog) 0 unit SUBCUT QIDACANDBED [facility]; Protocol Last Admin: 03/13/18 06:45 Dose: Not Given Lisinopril (Prinivil) 10 mg PO DAILY [facility] Last Admin: 03/12/18 09:11 Dose: 10 mg Loratadine (Claritin) 10 mg PO BEDTIME [facility] Last Admin: 03/12/18 21:47 Dose: Not Given Lorazepam (Ativan) 2 mg IVPUSH Q4H PRN PRN Reason: Seizures Lorazepam (Ativan) 1 mg IV Q6H PRN PRN Reason: Anxiety Magnesium Sulfate (Pharmacy To Dose - Magnesium Replacement) 0 dose .XX ASDIRECTED PRN PRN Reason: RX TO WATCH MAG LEVEL Metoprolol Tartrate (Lopressor) 5 mg IVPUSH Q4H PRN PRN Reason: Tachycardia Nicotine (Habitrol) 21 mg TRDERM DAILY [facility] Last Admin: 03/12/18 09:12 Dose: Not Given Ondansetron HCl (Zofran) 4 mg IV Q6H PRN PRN Reason: Nausea/Vomiting Last Admin: 03/10/18 06:48 Dose: 4 mg Oxymetazoline HCl (Afrin Original 0.05% Nasal [place]) 1 - 2 ml BIGG Q12HR PRN PRN Reason: Congestion Last Admin: 03/10/18 15:40 Dose: 1 spray Pantoprazole Sodium (Protonix) 40 mg PO ACBREAKFAST [facility] Last Admin: 03/13/18 06:31 Dose: 40 mg Phenytoin Sodium (Phenytoin) 100 mg PO DAILY [facility] Last Admin: 03/12/18 09:11 Dose: 100 mg Polyethylene Glycol (Miralax) 17 gm PO DAILY PRN PRN Reason: Constipation Potassium Chloride (Pharmacy To Dose - Potassium Replacement) 0 dose .XX ASDIRECTED PRN PRN Reason: RX TO WATCH K LEVELS Rosuvastatin Calcium (Crestor) 10 mg PO DAILY [facility] Last Admin: 03/12/18 09:11 Dose: 10 mg Saccharomyces Boulardii (Florastor) 250 mg PO DAILY [facility] Last Admin: 03/12/18 09:11 Dose: 250 mg Senna/Docusate Sodium (Senna Plus) 1 tab PO BID PRN PRN Reason: Constipation Sodium Chloride (Saline Flush) 10 ml FLUSH ASDIRECTED PRN PRN Reason: Keep Vein Open Last Admin: 03/09/18 18:55 Dose: 10 ml Temazepam (Restoril) 15 mg PO BEDTIME PRN PRN Reason: Sleep Last Admin: 03/10/18 00:12 Dose: 15 mg Discontinued Medications Acetaminophen (Tylenol) Confirm Administered Dose 975 mg .ROUTE .STK-MED ONE Stop: 03/09/18 20:59 Last Admin: 03/09/18 22:59 Dose: Not Given Acetaminophen (Tylenol) 975 mg PO NOW ONE Stop: 03/09/18 21:02 Last Admin: 03/09/18 21:02 Dose: 975 mg Albuterol (Proventil Neb Soln) 2.5 mg NEB ONETIME ONE Stop: 03/09/18 18:14 Last Admin: 03/09/18 18:29 Dose: 2.5 mg Diatrizoate Meglum/Diatrizoate Sod (Gastrografin 37%) 120 ml PO ONETIME ONE Stop: 03/10/18 08:15 Last Admin: 03/10/18 08:47 Dose: 90 ml Hydromorphone HCl (Dilaudid) 0.5 mg IVPUSH ONETIME ONE Stop: 03/09/18 18:15 Last Admin: 03/09/18 19:23 Dose: 0.5 mg Hydromorphone HCl (Dilaudid) 0.5 mg IVPUSH ONETIME ONE Stop: 03/09/18 21:39 Last Admin: 03/09/18 21:46 Dose: 0.5 mg Hydromorphone HCl (Dilaudid) 0.5 mg IVPUSH Q2H PRN PRN Reason: Pain (severe 7-10) Sodium Chloride (Normal Saline) 1,000 mls @ 999 mls/hr IV ONETIME ONE Stop: 03/09/18 19:13 Last Admin: 03/09/18 18:50 Dose: 999 mls/hr Sodium Chloride (Normal Saline) 1,000 mls @ 999 mls/hr IV ONETIME ONE Stop: 03/09/18 19:16 Last Admin: 03/09/18 19:56 Dose: 999 mls/hr Levofloxacin/Dextrose 750 mg/ (Premix) 150 mls @ 100 mls/hr IV ONETIME ONE Stop: 03/09/18 22:14 Last Admin: 03/09/18 21:02 Dose: 100 mls/hr Sodium Chloride (Normal Saline) 1,000 mls @ 125 mls/hr IV ASDIRECTED [facility] Last Admin: 03/10/18 22:45 Dose: 125 mls/hr Levofloxacin/Dextrose 500 mg/ (Premix) 100 mls @ 100 mls/hr IV Q24H [facility] Last Admin: 03/10/18 09:44 Dose: Not Given Piperacillin Sod/Tazobactam (Sod 4.5 gm/ Sodium Chloride) 100 mls @ 200 mls/hr IV ONETIME ONE Stop: 03/09/18 22:44 Last Admin: 03/09/18 22:50 Dose: 200 mls/hr Magnesium Sulfate 4 gm/ Premix 100 mls @ 25 mls/hr IV ONETIME ONE Stop: 03/10/18 14:29 Last Admin: 03/10/18 11:14 Dose: 25 mls/hr Magnesium Sulfate 2 gm/ Premix 50 mls @ 25 mls/hr IV ONETIME ONE Stop: 03/12/18 12:29 Last Admin: 03/12/18 12:27 Dose: 25 mls/hr Insulin Human Lispro (Humalog) 0 unit SUBCUT QIDACANDBED [facility]; Protocol Last Admin: 03/10/18 12:24 Dose: Not Given Iopamidol (Isovue-300 (61%)) 150 ml IVPUSH ONETIME ONE Stop: 03/10/18 08:15 Last Admin: 03/10/18 08:48 Dose: 150 ml Ketorolac Tromethamine (Toradol) 30 mg IVPUSH ONETIME ONE Stop: 03/09/18 18:14 Last Admin: 03/09/18 18:53 Dose: 30 mg Levofloxacin (Levaquin) 750 mg PO ONETIME ONE Stop: 03/13/18 07:34 Last Admin: 03/13/18 07:46 Dose: 750 mg Miscellaneous Information (Remove Patch) 0 ea TRDERM DAILY [facility] Last Admin: 03/10/18 08:26 Dose: Not Given Non-Formulary Medication (Krill Oil [Krill Oil]) 1 tab PO DAILY [facility] Phenytoin Sodium (Phenytoin) 300 mg PO DAILY [facility] Potassium Chloride (Klor-Con M20) 40 meq PO Q4H [facility] Stop: 03/10/18 02:01 Last Admin: 03/10/18 02:00 Dose: Not Given Sodium Chloride (Saline Flush) 10 ml FLUSH ONETIME PRN PRN Reason: IV FLUSH Stop: 03/10/18 18:00 Last Admin: 03/10/18 08:48 Dose: 10 ml - Exam General: Reports: Alert, Oriented, Cooperative, No Acute Distress HEENT: Reports: Pupils Equal, Pupils Reactive, EOMI, Mucous Membr. Moist/[place] Neck: Reports: Supple, Trachea Midline, No JVD, No Thyromegaly Lungs: Reports: Clear to Auscultation, Normal Respiratory Effort Cardiovascular: Reports: Regular Rate, Regular Rhythm GI/Abdominal Exam: Normal Bowel Sounds, Soft, Non-Tender, No Organomegaly, No Distention, No Abnormal Bruit (Male) Exam: Deferred Rectal (Males) Exam: Deferred Back Exam: Reports: Normal Inspection, Decreased Range of Motion Extremities: Normal Inspection, Normal Range of Motion, Non-Tender, No Pedal Edema, Normal Capillary Refill Skin: Reports: Warm, Dry, Intact Neurological: Reports: No New Focal Deficit Psy/Mental Status: Reports: Alert, Normal Affect, Normal Mood
[2018-03-13] MEDS ORDERED: Magnesium Sulfate/Water 4 GM in Premix Bag 1 BAG IV ONE (11:30)
--- NOTE | 2018-03-14 14:07 | CR ---
Abdominal series: Supine and upright views of the abdomen were obtained as well as frontal view of the chest. Comparison: No prior chest or abdominal x-ray. Bowel gas pattern appears normal. Heart size is at the upper limits of normal. Upper mediastinum is normal. Lungs are clear with no acute parenchymal change. No free air is seen. Slight degenerative endplate spurring is noted within the spine. Impression: 1. Incidental findings. Diagnostic code #2
== END 2018-03-13 07:50 | disposition home or self-care (01) | DRG 690 ==
LOC: JD.ED 17:28 → JD.MS 21:28
PROVIDERS: ADMIT Internal Medicine; ATTEND Internal Medicine
DX: N10 Acute pyelonephritis (principal); B96.20 Unspecified Escherichia coli [E. coli] as the cause of diseases classified elsewhere; G40.909 Epilepsy, unspecified, not intractable, without status epilepticus; I25.10 Atherosclerotic heart disease of native coronary artery without angina pectoris; K21.9 Gastro-esophageal reflux disease without esophagitis; E78.00 Pure hypercholesterolemia, unspecified; G89.4 Chronic pain syndrome; F17.200 Nicotine dependence, unspecified, uncomplicated; E10.9 Type 1 diabetes mellitus without complications; I10 Essential (primary) hypertension; E78.5 Hyperlipidemia, unspecified; F17.210 Nicotine dependence, cigarettes, uncomplicated; R07.9 Chest pain, unspecified; R05 Cough; J40 Bronchitis, not specified as acute or chronic; R50.9 Fever, unspecified; J32.9 Chronic sinusitis, unspecified; N28.9 Disorder of kidney and ureter, unspecified; M54.9 Dorsalgia, unspecified; Z95.5 Presence of coronary angioplasty implant and graft; Z79.899 Other long term (current) drug therapy; Z79.82 Long term (current) use of aspirin; Z79.4 Long term (current) use of insulin
CPT/HCPCS: 36415; 74022; 80053; 81001; 83036; 83605; 83690; 85007; 85027; 85379; 85652; 86140; 86738; 87040 ×2; 87081; 87086; 87088; 87186; 87430; 87804 ×2; 94640; 96361; 96365; 96375; 99285; J1170; J1885; J1956; J7040 ×2; J7050; 70486; 70486-26; 74177; 74177-26; 80048; 80061; 82962; 83735; 85025; 97161-GP; 97165-GO; 97530-GO; 99284; A9270-GY; J1815; J2405; J2543; J3475; J7030; Q9967